=== PATIENT | female | born 1985 | race Caucasian/White ===

== ENCOUNTER → 2016-07-03 | Outpatient (CLI) | payer BC ==
[~2016-07-03] MED LIST: ALBUTEROL0.09 MG/A2 IH; ANAPROX DS550 MG PO; ATIVAN1 MG PO; BANOPHEN50 MG PO; BENADRYL ALLERG25 M5 PO; BENADRYL25 M2 PO; BIAXIN500 MG PO; CATAFLAM50 MG PO; CEFTIN500 MG PO; CLARITIN10 MG PO; CLEOCIN HCL150 MG PO; CLINDAMYCIN150 MG PO; EFFEXOR XR150 M1 PO; FAMOTIDINE20 M1 PO; FIORICET 325 MG1 TAB PO; HYDROCODONE BIT1 T11 PO; KEFLEX250 MG PO; MEDROL DOSEPAK4 MG PO; METFORMIN500 MG PO; MOTRIN600 MG PO; MOTRIN800 MG PO; Motrin,Rufen800 MG PO; PAXIL10 MG PO; PREDNISONE10 M1 PO; PREDNISONE10 MG PO; PREDNISONE20 M1 PO; ROXICET ORAL SOL5 ML PO; SMZ-TMP 800 MG-1 TA1 PO; TRAMADOL HCL50 MG PO; ULTRAM50 MG PO; VICODIN 5/500 505 MG PO; VICODIN 500 MG-1 TAB PO; VICODIN ES 7501 TAB PO; VOLTAREN50 M1 PO; ZANTAC 150150 MG PO; ZOFRAN ODT4 MG SL; ZOFRAN ODT8 MG PO; ZYRTEC10 M3 PO; Zofran4 MG PO
== END | disposition home or self-care (01) ==
LOC: RAD 18:06
DX: S93.402A Sprain of unspecified ligament of left ankle, initial encounter (principal); M25.572 Pain in left ankle and joints of left foot; X58.XXXA Exposure to other specified factors, initial encounter; Y93.89 Activity, other specified; Y92.89 Other specified places as the place of occurrence of the external cause; Y99.8 Other external cause status

== ENCOUNTER → 2017-02-04 | Outpatient (CLI) | payer OTHER, BC | END | disposition home or self-care (01) | LOC: RAD 15:05 | DX: M79.671 Pain in right foot (principal); M79.672 Pain in left foot ==

== ENCOUNTER 2017-04-17 19:54 | Inpatient (IN) | payer OTHER, BC ==
[~2017-04-17] VITALS: Ht 162.6 cm; Wt 98.7 kg
[2017-04-17 20:01] VITALS: BP 153/97
[2017-04-17 20:39] LABS: BASO % 0.4 % (0.0-1.0); EOS # 0.1 10*3/uL (0.0-0.4); EOS % 0.8 % (1.0-4.0); HEMATOCRIT 39.8 % (37.0-47.0); HEMOGLOBIN 13.2 g/dl (12.0-16.0); LYMPH # 3.1 10*3/uL (1.3-4.4); LYMPH % 32.9 % (27.0-41.0); MEAN CELL VOLUME 85.6 fl (81.0-99.0); MEAN CORPUSCULAR HGB 28.4 pg (27.0-31.0); MEAN CORPUSCULAR HGB CONC 33.2 g/dl (33.0-37.0); MONO # 0.6 10*3/uL (0.1-1.0); MONO % 6.6 % (3.0-9.0); NEUT # 5.5 10*3/uL (2.3-7.9); NEUT % 59.1 % (47.0-73.0); PLATELET COUNT AUTOMATED 252 10*3/uL (130-400); RED BLOOD COUNT 4.65 10*6/uL (4.10-5.10); RED CELL DISTRI WIDTH 13.8 % (0-14.5); WHITE BLOOD COUNT 9.3 10*3/uL (4.8-10.8)
[2017-04-17 20:55] LABS: ALBUMIN 3.9 gm/dl (3.1-4.5); ALKALINE PHOSPHATASE 53 U/L (45-117); BUN 10 mg/dl (7-24); CHLORIDE 108 mmol/L (98-107); CREATININE 0.81 mg/dL (0.55-1.02); POTASSIUM 3.8 mmol/L (3.5-5.1); SGOT/AST 43 IU/L (3-35); SGPT/ALT 102 U/L (12-78); SODIUM 139 mmol/L (136-145); TOTAL PROTEIN 7.6 gm/dL (6.4-8.2)
[2017-04-17 20:56] LABS: BETA-HCG, QUANT < 1.0 mIU/mL (1-3); TROPONIN I < 0.015 ng/ml (<0.045)
[2017-04-17 21:17] LABS: BILIRUBIN NEGATIVE (NEGATIVE); BLOOD 3+ (NEGATIVE); CLARITY CLEAR (CLEAR); COLOR YELLOW (YELLOW); GLUCOSE NEGATIVE (NEGATIVE); KETONE NEGATIVE (NEGATIVE); LEUKO ESTERASE NEGATIVE (NEGATIVE); NITRITE NEGATIVE (NEGATIVE); SPECIFIC GRAVITY 1.015 (1.005-1.030); UROBILINOGEN 0.2 E.U./dl (0.2-1.0)
[2017-04-17 21:24] LABS: BACTERIA TRACE
[2017-04-17 21:25] LABS: RBC 21-30 rbc/hpf (0-2); WBC 0-2 wbc/hpf (0-5)
[2017-04-18 00:25] VITALS: BP 128/72
[2017-04-18 06:47] LABS: BASO % 0.5 % (0.0-1.0); EOS # 0.1 10*3/uL (0.0-0.4); EOS % 1.1 % (1.0-4.0); HEMOGLOBIN 11.3 g/dl (12.0-16.0); LYMPH # 4.8 10*3/uL (1.3-4.4); LYMPH % 54.3 % (27.0-41.0); MEAN CELL VOLUME 88.2 fl (81.0-99.0); MEAN CORPUSCULAR HGB 27.7 pg (27.0-31.0); MEAN CORPUSCULAR HGB CONC 31.4 g/dl (33.0-37.0); MEAN PLATELET VOLUME 12.1 fl (9.6-12.3); MONO # 0.4 10*3/uL (0.1-1.0); NEUT # 3.4 10*3/uL (2.3-7.9); NEUT % 38.9 % (47.0-73.0); PLATELET COUNT AUTOMATED 213 10*3/uL (130-400); RED BLOOD COUNT 4.08 10*6/uL (4.10-5.10); RED CELL DISTRI WIDTH 13.9 % (0-14.5); WHITE BLOOD COUNT 8.8 10*3/uL (4.8-10.8)
[2017-04-18 07:18] LABS: ALBUMIN 3.2 gm/dl (3.1-4.5); BUN 9 mg/dl (7-24); CHLORIDE 112 mmol/L (98-107); CHOLESTEROL 120 mg/dL (<200); PHOSPHOROUS 4.3 mg/dL (2.5-4.9); SGOT/AST 32 IU/L (3-35); SGPT/ALT 81 U/L (12-78); SODIUM 142 mmol/L (136-145); TOTAL PROTEIN 6.2 gm/dL (6.4-8.2); TRIGLYCERIDES 71 mg/dl (<150); VLDL CHOLESTEROL 14 mg/dL (6-40)
[2017-04-18 07:24] LABS: ALKALINE PHOSPHATASE 40 U/L (45-117); HDL CHOLESTEROL 35 mg/dl (40-60); LDL CHOLESTEROL 71 mg/dL (9-159)
[2017-04-18 07:54] LABS: VITAMIN D, 25-HYDROXY 9.3 ng/mL (30-100)
[2017-04-18 09:00] VITALS: BP 102/82
[2017-04-18 12:00] VITALS: BP 110/66
[2017-04-18 16:00] VITALS: BP 97/57
[2017-04-18 20:00] VITALS: BP 133/74
[2017-04-19] VITALS (8 sets, daily range): BP systolic 103–125; BP diastolic 52–78
[2017-04-19 07:22] LABS: BASO % 0.3 % (0.0-1.0); EOS # 0.1 10*3/uL (0.0-0.4); EOS % 1.4 % (1.0-4.0); HEMATOCRIT 35.7 % (37.0-47.0); HEMOGLOBIN 11.7 g/dl (12.0-16.0); LYMPH # 3.9 10*3/uL (1.3-4.4); LYMPH % 53.1 % (27.0-41.0); MEAN CELL VOLUME 88.1 fl (81.0-99.0); MEAN CORPUSCULAR HGB 28.9 pg (27.0-31.0); MEAN CORPUSCULAR HGB CONC 32.8 g/dl (33.0-37.0); MONO # 0.5 10*3/uL (0.1-1.0); MONO % 6.6 % (3.0-9.0); NEUT # 2.8 10*3/uL (2.3-7.9); NEUT % 38.5 % (47.0-73.0); PLATELET COUNT AUTOMATED 203 10*3/uL (130-400); RED BLOOD COUNT 4.05 10*6/uL (4.10-5.10); RED CELL DISTRI WIDTH 13.8 % (0-14.5); WHITE BLOOD COUNT 7.3 10*3/uL (4.8-10.8)
[2017-04-19 07:46] LABS: BUN 6 mg/dl (7-24); CHLORIDE 111 mmol/L (98-107); CREATININE 0.74 mg/dL (0.55-1.02); POTASSIUM 3.6 mmol/L (3.5-5.1); SODIUM 142 mmol/L (136-145)
[2017-04-20] VITALS: BP 121/81
[2017-04-20 07:45] LABS: BASO % 0.4 % (0.0-1.0); EOS # 0.1 10*3/uL (0.0-0.4); EOS % 1.5 % (1.0-4.0); HEMATOCRIT 36.5 % (37.0-47.0); HEMOGLOBIN 12.3 g/dl (12.0-16.0); LYMPH % 44.3 % (27.0-41.0); MEAN CELL VOLUME 86.5 fl (81.0-99.0); MEAN CORPUSCULAR HGB 29.1 pg (27.0-31.0); MEAN CORPUSCULAR HGB CONC 33.7 g/dl (33.0-37.0); MEAN PLATELET VOLUME 11.4 fl (9.6-12.3); MONO # 0.5 10*3/uL (0.1-1.0); MONO % 7.6 % (3.0-9.0); NEUT # 3.1 10*3/uL (2.3-7.9); NEUT % 46.1 % (47.0-73.0); PLATELET COUNT AUTOMATED 206 10*3/uL (130-400); RED BLOOD COUNT 4.22 10*6/uL (4.10-5.10); RED CELL DISTRI WIDTH 13.4 % (0-14.5); WHITE BLOOD COUNT 6.7 10*3/uL (4.8-10.8)
[2017-04-20 08:00] VITALS: BP 131/80
[2017-04-20 08:10] LABS: ALBUMIN 3.2 gm/dl (3.1-4.5); ALKALINE PHOSPHATASE 38 U/L (45-117); BUN 5 mg/dl (7-24); CHLORIDE 109 mmol/L (98-107); LIPASE 161 U/L (73-393); POTASSIUM 3.5 mmol/L (3.5-5.1); SGOT/AST 22 IU/L (3-35); SGPT/ALT 71 U/L (12-78); SODIUM 142 mmol/L (136-145); TOTAL PROTEIN 6.5 gm/dL (6.4-8.2)
[2017-04-20 12:00] VITALS: BP 144/75
[2017-04-20 16:00] VITALS: BP 127/71
[2017-04-20] MEDS ORDERED: PROTONIX40 MG PO (17:24)
[2017-04-20] MEDS ORDERED: VITAMIN D-32000 UNI1 PO (17:24)
[2017-04-20] MEDS ORDERED: NATURE'S BLEND F1 MG PO (17:24)
== END 2017-04-20 17:38 | disposition home or self-care (01) | DRG 392 ==
LOC: ED 19:54 → EDHOLD 22:57 → 4E 22:57
PROVIDERS: Emergency Medicine; Hospitalist; Internal Medicine Hospice and Palliative Medicine; Student in an Organized Health Care Education/Training Program
PROC: 0DJ08ZZ Inspection of Upper Intestinal Tract, Via Natural or Artificial Opening Endoscopic (ICD-10-PCS; principal; 2017-04-19)
DX: R11.2 Nausea with vomiting, unspecified (principal); E44.0 Moderate protein-calorie malnutrition; E87.8 Other disorders of electrolyte and fluid balance, not elsewhere classified; Z68.41 Body mass index [BMI] 40.0-44.9, adult; E66.01 Morbid (severe) obesity due to excess calories; F41.9 Anxiety disorder, unspecified; G43.909 Migraine, unspecified, not intractable, without status migrainosus; K21.9 Gastro-esophageal reflux disease without esophagitis; R73.9 Hyperglycemia, unspecified; R74.0 Nonspecific elevation of levels of transaminase and lactic acid dehydrogenase [LDH]; F32.9 Major depressive disorder, single episode, unspecified; E78.5 Hyperlipidemia, unspecified; D64.9 Anemia, unspecified; E55.9 Vitamin D deficiency, unspecified; E53.8 Deficiency of other specified B group vitamins; K44.9 Diaphragmatic hernia without obstruction or gangrene; R10.9 Unspecified abdominal pain; Z90.49 Acquired absence of other specified parts of digestive tract; Z90.89 Acquired absence of other organs; Z88.1 Allergy status to other antibiotic agents; Z88.0 Allergy status to penicillin; Z82.49 Family history of ischemic heart disease and other diseases of the circulatory system; Z83.3 Family history of diabetes mellitus; Z72.0 Tobacco use; Z87.19 Personal history of other diseases of the digestive system

== ENCOUNTER → 2017-05-08 | Outpatient (CLI) | payer OTHER, BC ==
[~2017-05-08] MED LIST changes: +NATURE'S BLEND F1 MG PO; +PROTONIX40 MG PO; +VITAMIN D-32000 UNI1 PO
== END | disposition home or self-care (01) ==
LOC: RAD 05:39
DX: R11.0 Nausea (principal); R10.9 Unspecified abdominal pain

== ENCOUNTER → 2017-08-20 | Outpatient (CLI) | payer OTHER, BC | END | disposition home or self-care (01) | LOC: RAD 06:39 | DX: R00.2 Palpitations (principal); Z87.891 Personal history of nicotine dependence ==

== ENCOUNTER 2017-08-23 21:39 | Emergency (ER) | payer OTHER, BC ==
[~2017-08-23] VITALS: Ht 160 cm; Wt 95.3 kg
[~2017-08-23 21:39] MED LIST changes: -MACROBID100 M1 PO; -NORCO 5-325 TA1 EACH PO; -Orphenadrine C100 MG PO
[2017-08-23 22:03] LABS: BILIRUBIN NEGATIVE (NEGATIVE); BLOOD NEGATIVE (NEGATIVE); CLARITY SL CLOUDY (CLEAR); COLOR YELLOW (YELLOW); GLUCOSE NEGATIVE (NEGATIVE); KETONE NEGATIVE (NEGATIVE); LEUKO ESTERASE NEGATIVE (NEGATIVE); NITRITE NEGATIVE (NEGATIVE); SPECIFIC GRAVITY 1.025 (1.005-1.030)
[2017-08-23 22:10] LABS: BACTERIA 2+; EPITHELIAL CELLS TNTC; MUCOUS TRACE; RBC 0-2 rbc/hpf (0-2)
[2017-08-23 23:08] VITALS: BP 105/53
[2017-08-23] MEDS ORDERED: ANAPROX DS550 MG PO (23:49)
[2017-08-23] MEDS ORDERED: NORCO 5-325 TA1 EACH PO (23:49)
[2017-08-23] MEDS ORDERED: Orphenadrine C100 MG PO (23:49)
[2017-08-24] MEDS ORDERED: MACROBID100 M1 PO (01:26)
== END 2017-08-23 23:58 | disposition home or self-care (01) ==
LOC: ED 21:39
PROVIDERS: Emergency Medicine Emergency Medical Services
DX: S76.012A Strain of muscle, fascia and tendon of left hip, initial encounter (principal); M08.90 Juvenile arthritis, unspecified, unspecified site; F17.200 Nicotine dependence, unspecified, uncomplicated; G89.29 Other chronic pain; R10.2 Pelvic and perineal pain; E78.00 Pure hypercholesterolemia, unspecified; G43.909 Migraine, unspecified, not intractable, without status migrainosus; E66.01 Morbid (severe) obesity due to excess calories; Z68.41 Body mass index [BMI] 40.0-44.9, adult; Z90.49 Acquired absence of other specified parts of digestive tract; Z98.890 Other specified postprocedural states; Z88.0 Allergy status to penicillin; Z88.1 Allergy status to other antibiotic agents; Z79.899 Other long term (current) drug therapy; X50.1XXA Overexertion from prolonged static or awkward postures, initial encounter; Y93.89 Activity, other specified; Y92.89 Other specified places as the place of occurrence of the external cause; Y99.9 Unspecified external cause status

== ENCOUNTER → 2017-08-23 | Outpatient (CLI) | payer OTHER, BC ==
[~2017-08-23] MED LIST changes: +MACROBID100 M1 PO; +NORCO 5-325 TA1 EACH PO; +Orphenadrine C100 MG PO
--- NOTE | ~2017-08-23 | HM ---
[place], [place] HOLTER MONITOR REPORT NAME: [id number] UNIT #: [id number] ROOM: DOCTOR: VIRGEN AUSTIN MD BIRTHDATE: [birth year] DOS: 08/27/2017 REFERRING PHYSICIAN: Keke Alcala. INDICATION: Palpitations. FINDINGS: 1. The patient underwent standard 48-hour Holter. The patient's baseline rhythm was normal sinus with average heart rate of 70 beats per minute with a minimum heart rate of 43 beats per minute, with maximum heart rate of 143 beats per minute. 2. Supraventricular activity: The patient had a total of 39 isolated PACs. 3. Ventricular activity, none. 4. No significant blocks, pauses, or bradycardia. 5. No diary was returned. SUMMARY OF FINDINGS: Benign 48-hour Holter monitor. VIRGEN AUSTIN MD CM:HOLTER:HOLTER MONITOR REPORT [id number] VIRGEN AUSTIN MD
== END | disposition home or self-care (01) ==
LOC: CARD 06:24
DX: R00.2 Palpitations (principal)

== ENCOUNTER 2017-12-06 18:36 | Emergency (ER) | payer OTHER, BC ==
[~2017-12-06 18:36] MED LIST changes: +ASPIRIN ADULT L81 M1 PO; +Flonase 0.05% 120 Me NAS; +GOOD NEIGHBOR L10 MG PO; +MACROBID100 M1 PO; +NORCO 5-325 TA1 EACH PO; +Orphenadrine C100 MG PO; +VIBRAMYCIN100 MG PO; +VITAMIN D22000 UNIT PO
[2017-12-06 18:40] VITALS: BP 120/78
[2017-12-06] MEDS ORDERED: CHLORZOXAZONE500 M2 PO (19:39)
[2017-12-06] MEDS ORDERED: NAPROSYN500 MG PO (19:39)
== END 2017-12-06 21:35 | disposition home or self-care (01) ==
LOC: ED 18:36
DX: S13.9XXA Sprain of joints and ligaments of unspecified parts of neck, initial encounter (principal); S20.212A Contusion of left front wall of thorax, initial encounter; S20.211A Contusion of right front wall of thorax, initial encounter; G43.909 Migraine, unspecified, not intractable, without status migrainosus; E66.9 Obesity, unspecified; F17.200 Nicotine dependence, unspecified, uncomplicated; Z88.0 Allergy status to penicillin; Z68.35 Body mass index [BMI] 35.0-35.9, adult; Z90.49 Acquired absence of other specified parts of digestive tract; Z88.1 Allergy status to other antibiotic agents; Z79.899 Other long term (current) drug therapy; Z79.82 Long term (current) use of aspirin; V43.52XA Car driver injured in collision with other type car in traffic accident, initial encounter; Y93.89 Activity, other specified; Y92.488 Other paved roadways as the place of occurrence of the external cause; Y99.8 Other external cause status

== ENCOUNTER 2018-02-23 20:04 | Emergency (ER) | payer OTHER, BC ==
[~2018-02-23] VITALS: Ht 160 cm; Wt 95.3 kg
[~2018-02-23 20:04] MED LIST changes: +CHLORZOXAZONE500 M2 PO; +NAPROSYN500 MG PO
[2018-02-23 22:52] VITALS: BP 115/66
[2018-02-23] MEDS ORDERED: CYCLOBENZAPRINE10 MG PO (23:10)
[2018-02-23] MEDS ORDERED: Motrin,Rufen800 MG PO (23:10)
== END 2018-02-23 23:28 | disposition home or self-care (01) ==
LOC: ED 20:04
DX: R51 Headache (principal); F17.200 Nicotine dependence, unspecified, uncomplicated; Z88.0 Allergy status to penicillin; Z88.1 Allergy status to other antibiotic agents; Z79.1 Long term (current) use of non-steroidal anti-inflammatories (NSAID); Z79.82 Long term (current) use of aspirin; Z79.899 Other long term (current) drug therapy; Z90.49 Acquired absence of other specified parts of digestive tract; Z93.4 Other artificial openings of gastrointestinal tract status

== ENCOUNTER 2018-04-13 15:22 | Emergency (ER) | payer OTHER, BC ==
[~2018-04-13] VITALS: Wt 68.0 kg
[2018-04-13 15:22] VITALS: BP 100/70
[~2018-04-13 15:22] MED LIST changes: +CYCLOBENZAPRINE10 MG PO
[2018-06-17] MEDS ORDERED: NORCO 5-325 TA1 EACH PO (01:58)
[2018-06-17] MEDS ORDERED: Motrin,Rufen800 MG PO (01:59)
== END 2018-04-13 15:58 | disposition home or self-care (01) ==
LOC: ED 15:22
DX: H10.9 Unspecified conjunctivitis (principal); F17.200 Nicotine dependence, unspecified, uncomplicated; Z88.0 Allergy status to penicillin; Z88.1 Allergy status to other antibiotic agents; Z79.82 Long term (current) use of aspirin; Z90.49 Acquired absence of other specified parts of digestive tract

== ENCOUNTER → 2018-06-09 | Outpatient (CLI) | payer OTHER, BC ==
[~2018-06-09] MED LIST changes: +ATARAX,VISTARIL10 MG PO; +DOXYCYCLINE100 MG PO; +HYDROCODONE-AC1 EAC1 PO; +Nystatin 100,000 UNI PO; +OMEPRAZOLE MAGN20 MG PO; +REGLAN5 MG PO; +SEPTDS PO; +VISTARIL PO; +WELLBUTRIN SR150 MG PO; +ZOFRAN 4 MG ED2 TAB SL
== END | disposition home or self-care (01) ==
LOC: US 05-21 10:30
DX: R94.5 Abnormal results of liver function studies (principal); Z90.49 Acquired absence of other specified parts of digestive tract

== ENCOUNTER → 2018-07-16 | Day surgery (SDC) | payer OTHER, BC ==
[~2018-07-16] VITALS: Ht 160 cm; Wt 95.3 kg
--- NOTE | ~2018-07-16 | O ---
[place], [place] OPERATIVE NOTE NAME: [facility]CADO [facility] [id number] UNIT #: [id number] ROOM: [facility] [birth year] DOS: GASTROENDOSCOPIC REPORT: INDICATIONS: This is a 32-year-old patient, who was presented with chief complaint of epigastric distress. The patient known with a fatty liver and dyspepsia. ALLERGIES: PENICILLIN AND ERYTHROMYCIN. FAMILY HISTORY: Noncontributory. PAST SURGICAL HISTORY: Previous bile duct leak, status post previous cholecystectomy at age 17. PAST MEDICAL HISTORY: Obesity, anxiety. SOCIAL HISTORY: Vaping and nonalcohol consumer. PROCEDURE: Today's procedure part of investigation is panendoscopy plus biopsy. PREMEDICATION: Propofol. SCOPE: Olympus forward-viewing gastroscope Q10 video. REPORT: After putting the patient in left lateral position and application of lubricant to the scope, the scope was introduced; thereafter, under direct visualization, advanced through the length of esophagus without difficulty. I did not see any specific evidence of portal hypertension, i.e., reflux leading into the esophagus with IE esophageal varicosity. There was esophagus versus free of esophageal varicosity, hiatal hernia of 2 cm, which is photographed and as I entered the gastric pouch along the greater curvature large volume of food retention was noticed this signifies gastric stasis. The appropriate maneuver of the bolus of the food and retention of the ____ was bypassed along the lesser curvature into the pyloric ring into duodenal bulb, second and third part and photographic biopsy of the antrum was obtained. Air was suctioned out as much as possible the food liquid component of the retention was suctioned out. The patient was extubated along the lesser curvature, some evidence of reflux and possible minimal aspiration also noticed. I have questioned the patient as far as her last solid meal has been about 18 hours ago and therefore this signifies that she has gastroparesis. IMPRESSION: Gastroparesis retained food residue in large volume, gastritis, hiatal hernia. No esophageal varicosity, history of severe fatty metamorphosis of liver, work in progress. PLAN AND DISCUSSION: 1. We are going to consider omeprazole 20 mg 1 every day for dyspepsia and gastritis. 2. We are going to use metoclopramide 5 mg 1 hour a.c. ____ and antireflux with [place], [place] OPERATIVE NOTE NAME: JENNIFER MERCADO UNIT #: [id number] ROOM: DOCTOR: JESSICA MORA,MAURY BIRTHDATE: [birth year] elevation of the head of the bed 10 inches all time. Abstinence from solid food ingestion 5 hours before retiring and avoiding fatty food. Avoiding large volume food and follow up routinely with you in office and with me in GI clinic. Thank you very much indeed for your kind referral. MAURY LOPEZ MD CM:OPRECORD:OPERATIVE NOTE [id number] MAURY LOPEZ MD 07/16/18 1020 interface
[2018-07-16 08:12] VITALS: BP 132/94
[2018-07-16 09:33] VITALS: BP 104/68
[2018-07-16 09:45] VITALS: BP 106/73
[2018-07-16 10:00] VITALS: BP 114/83
== END | disposition home or self-care (01) ==
LOC: SDC 07-11 11:00
DX: K29.50 Unspecified chronic gastritis without bleeding (principal); K31.84 Gastroparesis; E66.9 Obesity, unspecified; F41.9 Anxiety disorder, unspecified; K44.9 Diaphragmatic hernia without obstruction or gangrene; Z88.0 Allergy status to penicillin; Z88.1 Allergy status to other antibiotic agents; Z87.891 Personal history of nicotine dependence; Z98.890 Other specified postprocedural states; Z79.899 Other long term (current) drug therapy; Z90.49 Acquired absence of other specified parts of digestive tract; Z68.37 Body mass index [BMI] 37.0-37.9, adult; Z82.49 Family history of ischemic heart disease and other diseases of the circulatory system; Z83.3 Family history of diabetes mellitus

== ENCOUNTER 2018-07-21 18:31 | Inpatient (IN) | payer OTHER ==
[~2018-07-21] VITALS: Ht 160 cm; Wt 108.0 kg
--- NOTE | ~2018-07-21 | PR ---
[place], [place] PROGRESS NOTE NAME: JENNIFER MERCADO [facility] #: [id number] UNIT #: [id number] ROOM: 428 DOCTOR: JESSICA MORAMAURY BIRTHDATE: [birth year] DOS: 07/23/2018 HISTORY: The patient is a 32-year-old patient who has presented with a chief complaint of nonspecific abdominal pain. CT scan has not been conclusive. Suspected mesenteric inflammation has been reported, panniculitis, nonspecific data. The patient is known to have biliary duct perforation at age 17 and borderline GOT/GPT, transaminemia. The patient has had cholecystectomy as I mentioned above, history of gastritis endoscopically not associated with the complaint. PAST SURGICAL HISTORY: Tonsillectomy, cholecystectomy, appendectomy, as well as cholecystojejunostomy possibility, detail is not in my hand or hepatojejunostomy. REVIEW OF SYSTEMS: CARDIORESPIRATORY: No shortness of breath, no chest pain. DIGESTIVE SYSTEM: No hematemesis, no hematochezia. No nausea or vomiting. PHYSICAL EXAMINATION: GENERAL: Healthy, borderline obese. HEENT: Head is normocephalic, nontraumatic. Mouth and buccal mucosa are benign. NECK: Supple. No thyromegaly. No cervical lymphadenopathy. CHEST: Symmetric anatomy, equal expansion. HEART: Normal sinus rhythm. No gallop. No murmur. ABDOMEN: Soft. No hepato-organomegaly. Bowel sounds present. No rebound tenderness. Slightly guarding on the right side, right upper quadrant, uncomfortable. EXTREMITIES: No cyanosis. No pedal edema. NEUROLOGIC: Alert, oriented x 3. IMPRESSION: Mesenteric nonspecific reported inflammation. PLAN AND DISCUSSION: We have kept the patient on ciprofloxacin and metronidazole IV. This can be further assessed with a CT scan of the abdomen and pelvis with IV contrast tomorrow morning, and if no acute concerning pathology found, then the patient can perhaps be discharged with Bactrim-DS and doxycycline or Bactrim-DS and metronidazole; doxycycline 100 mg b.i.d. for 10 days as well as metronidazole 500 mg t.i.d. for 10 days from discharge time. Otherwise, other adjunctive diagnoses as reported in past medical and surgical history. Awaiting CT scan of the abdomen with contrast results tomorrow. Report to be called to Dr. Nails in the morning as soon as available. [place], [place] PROGRESS NOTE NAME: JENNIFER MERCADO UNIT #: [id number] ROOM: [facility] DOCTOR: MAURY NAILS MD BIRTHDATE: [birth year] MAURY NAILS MD CM:PNMADHAVI [id number] MAURY NAILS MD 08/18/18 0956 interface
--- NOTE | ~2018-07-21 | CON ---
[place], [place] REPORT OF CONSULTATION NAME[facility]CAD[id number] UNIT #: [id number] ROOM: 428 DOCTOR: MAURY LPOEZ MD BIRTHDATE: [birth year] DOS: 07/21/2018 HISTORY OF PRESENT ILLNESS: This is a 32-year-old patient who presented with chief complaint of abdominal pain. She correlates it to the timing after she has had endoscopy. Thereafter, abdominal pain started, which is unusual. She has not had evidence of perforation. This issue has happened several days ago. The patient had multiple emesis. The patient has history of cholecystectomy and biliary perforation at age 17, accidental, and she has a surgical repair, possibly choledochojejunostomy repair. PAST MEDICAL HISTORY: Associated with gastroparesis, gastritis. PAST SURGICAL HISTORY: Cholecystectomy, appendectomy, tonsillectomy, adenoidectomy, cholecystic repair. Detail is not known, but perhaps cholecystic jejunostomy versus hepatojejunostomy. Tubal ligation fallopian also has been done. Appendectomy has been done. SOCIAL HISTORY: Nonsmoker of nicotine, but vaping. FAMILY HISTORY: Noncontributory except myocardial infarction, hypertension, and diabetes. REVIEW OF SYSTEMS: HEENT: Denies double vision, blurred vision. RESPIRATORY: Denies shortness of breath. CARDIOVASCULAR: No chest pain. DIGESTIVE SYSTEM: Cross abdominal pain, epigastric pain. PHYSICAL EXAMINATION: GENERAL: Obese patient. HEENT: Head normocephalic, nontraumatic. Eyes: Pupils round and reactive. Mouth and buccal mucosa benign. NECK: Supple, no thyromegaly, no cervical lymphadenopathy. CHEST: Symmetric anatomy, equal expansion. No wheeze, no rhonchi. HEART: Normal sinus rhythm, no gallop, no murmur. ABDOMEN: Obese, soft. No hepato-organomegaly, nonspecific tenderness across abdomen. EXTREMITIES: No cyanosis, no pedal edema. NEUROLOGIC: Alert and oriented to time, place, person. IMPRESSION AND PLAN: Gross abdominal pain, possible panniculitis. However, gastric stasis, hiatal hernia, gastritis, according to the recent endoscopy performed on 07/16/2018. Antral biopsy has been negative for H. pylori or unwanted tissue. Lactic acid has been negative. Comprehensive metabolic panel, GFR normal. Liver function test, SGOT, GPT of 51 and 98. Apparently chronic elevation of the SGOT and GPT. Her C-reactive protein today has been 0.95 was slightly elevated. Lipase within normal limits. CBC differential, white blood cell 9, H and H of 12 and 38, differential within normal limit. CT scan of the abdomen and pelvis, lung bases are clear, fatty liver noticed mild pneumobilia, status post cholecystectomy is known with previous biliary surgery. No ureteral [place], [place] REPORT OF CONSULTATION NAME: JENNIFER MERCADO UNIT #: [id number] ROOM: 428 DOCTOR: JESSICA MORA,MAURY BIRTHDATE: [birth year] calculi. Main organs including pancreas, adrenal glands, liver and kidneys are suboptimally visualized; however, noticed. No acute process either otherwise identified. Labs reviewed, records reviewed. IMPRESSION: Ambiguous abdominal pain, status post previous hepatobiliary repair 15 years ago, history of obesity, hepatic steatosis with chronic abnormal transaminemia without elevation of the lipase, alkaline phosphatase or bilirubin. Suspected panniculitis, the study has been noncontrast due to the ambiguity of symptomatology of this patient, especially being young, the CT scan of the abdomen and pelvis with oral and IV contrast is going to be organized tomorrow and another CBC repeat. On the other hand, we are going to proceed with antibiotic therapy of Flagyl and ciprofloxacin just in case to see in 48 hours if she is going to have some relief of her inflammatory process in the abdomen as has been reported. Other adjunctive diagnoses that has been recently endoscopically evaluated was hiatal hernia, gastroparesis. She has been taking Reglan and she is on proton pump inhibitors. MAURY LOPEZ MD CM:CONSTR:REPORT OF CONSULTATION 2312 08/13/18 0731 interface
[2018-07-21 18:31] VITALS: BP 119/75
[~2018-07-21 18:31] MED LIST changes: -ATARAX,VISTARIL10 MG PO; -DOXYCYCLINE100 MG PO; -HYDROCODONE-AC1 EAC1 PO; -Nystatin 100,000 UNI PO; -SEPTDS PO; -ZOFRAN 4 MG ED2 TAB SL
[2018-07-21 19:03] LABS: HEMATOCRIT 38.6 % (37.0-47.0); HEMOGLOBIN 12.5 g/dl (12.0-16.0); MEAN CELL VOLUME 86.9 fl (81.0-99.0); MEAN CORPUSCULAR HGB 28.2 pg (27.0-31.0); MEAN CORPUSCULAR HGB CONC 32.4 g/dl (33.0-37.0); MEAN PLATELET VOLUME 10.9 fl (9.6-12.3); PLATELET COUNT AUTOMATED 263 10*3/uL (130-400); RED BLOOD COUNT 4.44 10*6/uL (4.10-5.10); RED CELL DISTRI WIDTH 13.5 % (0-14.5); WHITE BLOOD COUNT 9.7 10*3/uL (4.8-10.8)
[2018-07-21 19:22] LABS: ALBUMIN 3.7 gm/dl (3.1-4.5); ALKALINE PHOSPHATASE 60 U/L (45-117); BUN 11 mg/dl (7-24); CHLORIDE 106 mmol/L (98-107); CREATININE 0.77 mg/dL (0.55-1.02); LIPASE 244 U/L (73-393); POTASSIUM 3.6 mmol/L (3.5-5.1); SGOT/AST 51 IU/L (3-35); SGPT/ALT 98 U/L (12-78); SODIUM 136 mmol/L (136-145); TOTAL PROTEIN 7.4 gm/dL (6.4-8.2)
[2018-07-21 19:24] LABS: BILIRUBIN NEGATIVE (NEGATIVE); BLOOD NEGATIVE (NEGATIVE); CLARITY CLEAR (CLEAR); COLOR YELLOW (YELLOW); GLUCOSE NEGATIVE (NEGATIVE); KETONE NEGATIVE (NEGATIVE); LEUKO ESTERASE NEGATIVE (NEGATIVE); NITRITE NEGATIVE (NEGATIVE); PH 5.5 (5.0-9.0); UROBILINOGEN 0.2 E.U./dl (0.2-1.0)
[2018-07-21 19:25] LABS: TOTAL CELLS COUNTED 100 #CELLS
[2018-07-21 19:26] LABS: BURR CELLS FEW; PLATELET SUFFICIENCY NORMAL (NORMAL)
[2018-07-21 19:30] LABS: BACTERIA 1+
--- NOTE | 2018-07-21 20:22 | NUR ---
PT REPORTS CONTINUING ABD PAIN AND NAUSEA AFTER MEDICATION OF ZOFRAN AND TORADOL.DEPUTY REGISTER OF DEEDS STELLA WAS NOTIFIED AND PT MEDICATED PER EMAR.FAMILY AT BEDSIDE.
[2018-07-21 22:33] VITALS: BP 118/63
--- NOTE | 2018-07-21 23:08 | NUR ---
A 32, admitted to , under the services of JAMAL Cortez DO with a diagnosis of ABDOMINAL PAIN, INTRACTABLE NASUEA. Chief complaint is ADBOMINAL PAIN. Patient arrived via ambulatory from ER. Monitor applied. Initial assessment completed. Vital signs taken and recorded. JAMAL CORTEZ DO notified of admission to the unit. Orders received. See assessment for past medical history, medications and allergies. Patient and/or family oriented to unit. [facility] visitation policy reviewed. Clothing/patient valuable form completed. PAMELA AUSTIN
[2018-07-22] VITALS: BP 121/84
--- NOTE | 2018-07-22 00:15 | NUR ---
CALLED DR. ANTHONY ABOUT PATIENT BEING LEERY ABOUT TAKING NORCO ON AND EMPTY STOMACH. NO OTHER MEDS ORDERED. ALSO ASKED IF IT WERE OK TO ORDER KVO FLUIDS TO POSSIBLY HELP KEEP THE PATIENTS IV SINCE SHE HAS BEEN POKED MULTIPLE TIMES. HE STATED HE WOULD ORDER DILAUDID BUT TO WARN THE PATIENT ABOUT NARCOTICS AND HER BOWELS AND THAT HE WOULD ORDER THE KVO FLUIDS
--- NOTE | 2018-07-22 00:40 | NUR ---
PRN MORPHINE GIVEN FOR PT COMPLAINTS OF RUE ABDOMINAL PAIN RATING IT 8/10. CALL LIGHT JOVANA KEARNS, WILL MONITOR
--- NOTE | 2018-07-22 01:30 | NUR ---
PRN MEDICATION APPEARS EFFECTIVE, PT SLEEPING
--- NOTE | 2018-07-22 03:00 | NUR ---
PATIENT REMAINS ASLEEP AT THIS TIME. BREATHING IS EASY AND REGULAR ON ROOM AIR
--- NOTE | 2018-07-22 04:09 | NUR ---
PRN ZOFRAN AND MORPHINE GIVEN FOR PT COMPLAINTS OF NAUSEA AND RUQ ABDOMINAL PAIN 8/10 ON PAIN SCALE. CALL LIGHT WITHIN REACH, WILL MONITOR
[2018-07-22 06:29] LABS: BUN 11 mg/dl (7-24); CHLORIDE 107 mmol/L (98-107); CREATININE 0.66 mg/dL (0.55-1.02); POTASSIUM 3.8 mmol/L (3.5-5.1); SODIUM 138 mmol/L (136-145)
[2018-07-22] MEDS ORDERED: ATARAX,VISTARIL10 MG PO ×2 (07:05)
[2018-07-22 07:06] LABS: HEMATOCRIT 36.6 % (37.0-47.0); HEMOGLOBIN 11.6 g/dl (12.0-16.0); MEAN CELL VOLUME 87.8 fl (81.0-99.0); MEAN CORPUSCULAR HGB 27.8 pg (27.0-31.0); MEAN CORPUSCULAR HGB CONC 31.7 g/dl (33.0-37.0); MEAN PLATELET VOLUME 11.4 fl (9.6-12.3); PLATELET COUNT AUTOMATED 233 10*3/uL (130-400); RED BLOOD COUNT 4.17 10*6/uL (4.10-5.10); RED CELL DISTRI WIDTH 13.8 % (0-14.5); WHITE BLOOD COUNT 8.4 10*3/uL (4.8-10.8)
[2018-07-22 07:32] LABS: ATYPICAL LYMPHS 2 % (0-0); PLATELET SUFFICIENCY NORMAL (NORMAL); TOTAL CELLS COUNTED 100 #CELLS
[2018-07-22 08:00] VITALS: BP 120/73
--- NOTE | 2018-07-22 09:00 | NUR ---
Plastic Molding Operator in to talk to patient. Patient states lives at home with family. There are few steps in the home. Physician: ariadne de oliveira [facility]acy: [facility] Home health services: none Patient's level of ADLs: INDEPENDENT Patient has working utilities: all working DME: none Follow-up physician's appointment after d/c: will be made by hospitalist nurse director upon discharge Does patient want to access PORTAL?: no Discharge plan discussed with patient, patient lives at home with family, she is independent in adls and ambulation, patient will return home when able and denies any home needs. GREGOR DOBBINS
--- NOTE | 2018-07-22 10:05 | NUR ---
MEDICATED WITH 2MG IV MORPHINE AND ZOFRAN PER ORDERS AND REQUEST FOR RUQ ABDOMINAL PAIN RATED AT A 8 OUT OF 10.
--- NOTE | 2018-07-22 10:55 | NUR ---
ZOFRAN AND MORPHINE HELP.
--- NOTE | 2018-07-22 11:32 | NUR ---
CALLED AND SPOKE WITH DR OROSCO FOR ALTERNATIVE PAIN MEDICATION.
[2018-07-22 12:00] VITALS: BP 133/83
--- NOTE | 2018-07-22 12:28 | NUR ---
MEDICATED WITH PRN DILAUDID.
--- NOTE | 2018-07-22 13:03 | NUR ---
SPOKE TO DR OROSCO REGARDING WELLBUTRIN.
--- NOTE | 2018-07-22 15:53 | NUR ---
MEDICATED WITH PRN MORPHINE PER ORDER AND REQUEST FOR RUQ ABDOMINAL PAIN RATED AT A 8 OUT OF 10.
[2018-07-22 16:00] VITALS: BP 101/66
--- NOTE | 2018-07-22 18:20 | NUR ---
MEDICATED WITH DILAUDID PER ORDER AND REQUEST.
[2018-07-22 20:00] VITALS: BP 138/86
--- NOTE | 2018-07-22 20:34 | NUR ---
PATIENT MEDICATED WITH PRN MORPHINE FOR C/O ABDOMINAL PAIN. RATES 10/08. WILL CHECK EFFECTIVENESS.
[2018-07-23] VITALS: BP 121/67
[2018-07-23 06:56] LABS: CHLORIDE 108 mmol/L (98-107); POTASSIUM 3.6 mmol/L (3.5-5.1); SGOT/AST 39 IU/L (3-35); SODIUM 140 mmol/L (136-145)
[2018-07-23 07:00] LABS: ALKALINE PHOSPHATASE 45 U/L (45-117); BUN 9 mg/dl (7-24); CREATININE 0.79 mg/dL (0.55-1.02); SGPT/ALT 84 U/L (12-78); TOTAL PROTEIN 6.1 gm/dL (6.4-8.2)
[2018-07-23 08:00] VITALS: BP 129/84
--- NOTE | 2018-07-23 09:00 | NUR ---
case management visits with patient, patient states she will be going home when able and denies any home needs
--- NOTE | 2018-07-23 09:18 | NUR ---
MEDICATED WITH DILAUDID PER ORDER AND REQUEST.
--- NOTE | 2018-07-23 11:29 | NUR ---
MEDICATED WITH PRN MORPHINE PER ORDER AND REQUEST.
[2018-07-23 12:00] VITALS: BP 110/67
--- NOTE | 2018-07-23 12:00 | NUR ---
MORPHINE HELPS A LITTLE.
--- NOTE | 2018-07-23 15:23 | NUR ---
MEDICATED WITH PRN DILAUDID PER ORDER AND REQUEST.
[2018-07-23 16:00] VITALS: BP 116/69
--- NOTE | 2018-07-23 17:24 | NUR ---
MEDICATED WITH MORPHINE PER ORDER AND REQUEST.
[2018-07-23 20:00] VITALS: BP 124/68
[2018-07-24] VITALS: BP 123/68
[2018-07-24 06:41] LABS: ALBUMIN 3.1 gm/dl (3.1-4.5); ALKALINE PHOSPHATASE 42 U/L (45-117); BASO % 0.4 % (0.0-1.0); BUN 8 mg/dl (7-24); CHLORIDE 106 mmol/L (98-107); CREATININE 0.67 mg/dL (0.55-1.02); EOS # 0.1 10*3/uL (0.0-0.4); EOS % 1.9 % (1.0-4.0); HEMATOCRIT 36.3 % (37.0-47.0); MEAN CELL VOLUME 87.1 fl (81.0-99.0); MEAN CORPUSCULAR HGB 28.8 pg (27.0-31.0); MEAN CORPUSCULAR HGB CONC 33.1 g/dl (33.0-37.0); MEAN PLATELET VOLUME 11.2 fl (9.6-12.3); MONO # 0.5 10*3/uL (0.1-1.0); MONO % 6.8 % (3.0-9.0); NEUT # 3.8 10*3/uL (2.3-7.9); NEUT % 50.6 % (47.0-73.0); PLATELET COUNT AUTOMATED 249 10*3/uL (130-400); POTASSIUM 3.8 mmol/L (3.5-5.1); RED BLOOD COUNT 4.17 10*6/uL (4.10-5.10); RED CELL DISTRI WIDTH 13.9 % (0-14.5); SGOT/AST 45 IU/L (3-35); SGPT/ALT 85 U/L (12-78); SODIUM 138 mmol/L (136-145); TOTAL PROTEIN 6.2 gm/dL (6.4-8.2); WHITE BLOOD COUNT 7.4 10*3/uL (4.8-10.8)
[2018-07-24 08:00] VITALS: BP 109/57
--- NOTE | 2018-07-24 08:54 | NUR ---
PATIENT REQUESTING PAIN MEDICATION FOR ABDOMINAL PAIN AND NAUSEA MEDICATION FOR NAUSEA. MORPHINE AND ZOFRAN ADMINISTERED PRESCRIBED. WILL MONITOR FOR EFFECTIVENESS.
--- NOTE | 2018-07-24 09:00 | NUR ---
case management visits with patient, patient denies any home needs
--- NOTE | 2018-07-24 09:54 | NUR ---
PATIENT STATES THAT ZOFRAN AND MORPHINE INITIALLY HELPED WITH NAUSEA AND PAIN, BUT AFTER SHE ATE BREAKFAST SHE IS MORE NAUSEATED AND HAS ABDOMINAL PAIN. WILL FOLLOW UP WITH PHYSICIAN.
--- NOTE | 2018-07-24 10:20 | NUR ---
AM MEDICATION HELD AT THIS TIME DUE TO NAUSEA.
--- NOTE | 2018-07-24 10:49 | NUR ---
DR GROVER CALLED DUE TO PATIENTS CONTINUED NAUSEA. WANTS ME TO CALL JESSICA AND FOLLOW UP WITH HIM. AWAITING NEW ORDERS.
--- NOTE | 2018-07-24 10:53 | NUR ---
DR LOPEZ CALLED, HE WILL RETURN CALL SHORTLY.
--- NOTE | 2018-07-24 11:45 | NUR ---
PATIENT C/O ABDOMINAL PAIN RATED 8/10 AT THIS TIME. MORPHINE ADMINISTERED PRESCRIBED. WILL MONITOR FOR EFFECTIVENESS.
[2018-07-24 12:00] VITALS: BP 119/78
--- NOTE | 2018-07-24 12:24 | NUR ---
SPOKE WITH DR LOPEZ. WANTS PATIENT TO HAVE MRCP.
--- NOTE | 2018-07-24 12:45 | NUR ---
PATIENT STATES THAT DILAUDID HELPED HER ABDOMINAL PAIN RATED 5/10 AT THIS TIME. WILL CONTINUE TO MONITOR,
--- NOTE | 2018-07-24 14:37 | NUR ---
MRI CALLED ABOUT PATIENT POSSIBLY HAVING CLIP ON LIVER DUCT. RICARDO FROM MRI STATED THAT IT SHOULD BE OK TO SCAN. MRI FORM SENT.
[2018-07-24 16:00] VITALS: BP 108/54
--- NOTE | 2018-07-24 16:23 | NUR ---
PATIENT REQUESTING PAIN MEDICATION FOR ABDOMINAL PAIN RATED 8/10 AT THIS TIME. MORPHINE ADMINISTERED PRESCRIBED. WILL MONITOR FOR EFFECTIVENESS.
--- NOTE | 2018-07-24 16:30 | NUR ---
PATIENT IV INFILTRATED. DR GROVER CALLED- GOING TO SEE PATIENT TO PLACE NEW IV.
--- NOTE | 2018-07-24 17:23 | NUR ---
PATIENT STATES THAT PAIN IS A LITTLE BETTER AFTER ADMINISTRATION OF MORPHINE. WILL CONTINUE TO MONITOR.
--- NOTE | 2018-07-24 18:40 | NUR ---
IV started left hand with #24 protective cath after 1 attempts. Site prepped with Chloroprep. Sterile dressing applied. Patient tolerated procedure well. ALMA DELIA BUENO
[2018-07-24 20:00] VITALS: BP 113/67
--- NOTE | 2018-07-24 20:18 | NUR ---
PATIENT INQUIRING ABOUT HAVING LINE PLACED FOR PROCEDURE TOMORROW. DR. TAYLOR STATED THAT SHE DOES NOT NEED THE LINE TONIGHT, THEY WILL MORE THAN LIKELY DO IT IN THE MORNING. NOTIFIED HIM THAT WE ONLY HAVE A VERY SMALL IV N THE LEFT HAND AND MULTIPLE OF HER IV'S HAVE GONE BAD. HE STATED THAT IF THIS ONE GOES BAD TO LET THEM KNOW
--- NOTE | 2018-07-24 20:41 | NUR ---
DR TAYLOR CALLED TO MAKE PHERGAN PO IF PATIENT'S IV IS NOT WORKING. OK TO ENTER NEW ORDER.
[2018-07-25] VITALS: BP 115/65
--- NOTE | 2018-07-25 03:37 | NUR ---
MORPHINE GIVEN AT THIS TIME PER ORDERS FOR C/O RUQ ABDOMINAL PAIN. PHENERGAN GIVEN PER PT REQUEST FOR NAUSEA. WILL MONITOR EFFECTIVENESS.
--- NOTE | 2018-07-25 05:45 | NUR ---
PRN IV DILAUDID GIVEN PER ORDERS FOR ABDOMINAL PAIN PER PT REQUEST
[2018-07-25 08:00] VITALS: BP 112/71
--- NOTE | 2018-07-25 08:13 | NUR ---
DR GROVER NOTIFIED PATIENT UNABLE TO TOLERATE MRI PROCEDURE DUE TO ANXIETY.
--- NOTE | 2018-07-25 09:00 | NUR ---
case management visits with patient, patient states she will be going home when able and denies any home needs
--- NOTE | 2018-07-25 11:47 | NUR ---
PATIENT C/O RUQ PAIN. RATE 7/10 ON PAIN SCALE. MEDICATED WITH DILAUDID PER PRN ORDER. WILL CONTINUE TO MONITOR.
[2018-07-25 12:00] VITALS: BP 102/50
--- NOTE | 2018-07-25 15:55 | NUR ---
MEDICATED WITH NORCO PER PRN ORDER FOR C/O RUQ PAIN. RATE 8/10 ON PAIN SCALE. WILL CONTINUE TO MONITOR.
[2018-07-25 16:00] VITALS: BP 126/60
--- NOTE | 2018-07-25 17:18 | NUR ---
NORCO INEFFECTIVE. CONTINUES TO C/O RUQ PAIN. RATE 10/10 ON PAIN SCALE. MEDICATED WITH DILAUDID PER PRN ORDER. WILL CONTINUE TO MONITOR.
[2018-07-25 20:00] VITALS: BP 126/71
--- NOTE | 2018-07-25 21:32 | NUR ---
MORPHINE EFFECTIVE FOR ABDOMINAL PAIN
--- NOTE | 2018-07-25 21:43 | NUR ---
PATIENT MEDICATED WITH ZOFRAN FOR C/O NAUSEA. WILL MONITOR
--- NOTE | 2018-07-25 22:38 | NUR ---
ZOFRAN INEFFECTIVE. PHENERGAN GIVE IV, PUSHED SLOWLY. WILL MONITOR
--- NOTE | 2018-07-25 23:38 | NUR ---
IV PHENERGAN EFFECTIVE FOR NAUSEA
--- NOTE | 2018-07-25 23:53 | NUR ---
PATIENT MEDICATED WITH IV DILAUDID FOR C/O 8 ABDOMINAL PAIN. WILL MONITOR
[2018-07-26] VITALS: BP 149/94
--- NOTE | 2018-07-26 00:53 | NUR ---
IV DILAUDID EFFECTIVE FOR ABDOMINAL PAIN.
--- NOTE | 2018-07-26 02:53 | NUR ---
24 HR chart check completed.
--- NOTE | 2018-07-26 04:30 | NUR ---
PATIENT MEDICATED WITH MORPHINE FOR C/O 8/10 ABDOMINAL PAIN. WILL MONITOR
--- NOTE | 2018-07-26 05:30 | NUR ---
MORPHINE EFFECTIVE FOR ABDOMINAL PAIN.
--- NOTE | 2018-07-26 07:30 | NUR ---
Patient resting quietly with no c/o discomfort. Respirations easy and regular. Vital signs stable. No overt distress. AMBER DELEON
[2018-07-26 08:00] VITALS: BP 111/78
--- NOTE | 2018-07-26 08:53 | NUR ---
MEDICATED WITH IV PHENERGAN ORDERED PER PT REQUEST FOR C/O NAUSEA.
--- NOTE | 2018-07-26 09:11 | NUR ---
MEDICATED WITH IV DILAUDID ORDERED PER PT REQUEST FOR C/O PAIN TO RUQ RATED 8/10.
--- NOTE | 2018-07-26 11:55 | NUR ---
MEDICATIONS SOMEWHAT EFFECTIVE. MEDICATED WITH PO NORCO ORDERED PER PT REQUEST FOR C/O PAIN RATED 4/10.
[2018-07-26 12:00] VITALS: BP 121/65
[2018-07-26] MEDS ORDERED: HYDROCODONE-AC1 EAC1 PO (13:13)
[2018-07-26] MEDS ORDERED: ZOFRAN 4 MG ED2 TAB SL (13:13)
[2018-07-26] MEDS ORDERED: SEPTDS PO (13:13)
[2018-07-26] MEDS ORDERED: DOXYCYCLINE100 MG PO (13:13)
--- NOTE | 2018-07-26 13:43 | NUR ---
PHENERGRYN 25 MG GIVEN PER PT REQUEST FOR NAUSEA.
--- NOTE | 2018-07-26 14:15 | NUR ---
MEDICATION EFFECTIVE FOR NAUSEA.
[2018-07-26] MEDS ORDERED: Nystatin 100,000 UNI PO (14:25)
--- NOTE | 2018-07-26 14:26 | NUR ---
PT LEAVING IN CARE OF SISTER, AMBULATORY.
== END 2018-07-26 14:36 | disposition home or self-care (01) | DRG 394 ==
LOC: ED 18:31 → EDHOLD 20:43 → 4E 20:43
PROVIDERS: Family Medicine; Nurse Practitioner Family; Student in an Organized Health Care Education/Training Program; ADMIT Internal Medicine
DX: K65.4 Sclerosing mesenteritis (principal); K31.84 Gastroparesis; F17.210 Nicotine dependence, cigarettes, uncomplicated; K76.0 Fatty (change of) liver, not elsewhere classified; K29.70 Gastritis, unspecified, without bleeding; K44.9 Diaphragmatic hernia without obstruction or gangrene; Z88.0 Allergy status to penicillin; Z88.1 Allergy status to other antibiotic agents; Z90.49 Acquired absence of other specified parts of digestive tract; Z71.6 Tobacco abuse counseling; Z68.41 Body mass index [BMI] 40.0-44.9, adult; Z83.3 Family history of diabetes mellitus; Z82.49 Family history of ischemic heart disease and other diseases of the circulatory system; Z79.899 Other long term (current) drug therapy

== ENCOUNTER 2018-11-05 19:43 | Emergency (ER) | payer OTHER ==
[~2018-11-05] VITALS: Wt 95.3 kg
[~2018-11-05 19:43] MED LIST changes: +ATARAX,VISTARIL10 MG PO; +DOXYCYCLINE100 MG PO; +HYDROCODONE-AC1 EAC1 PO; +Nystatin 100,000 UNI PO; +SEPTDS PO; +ZOFRAN 4 MG ED2 TAB SL
[2018-11-05 19:50] VITALS: BP 141/71
[2018-11-05] MEDS ORDERED: ANAPROX DS550 MG PO (20:32)
== END 2018-11-05 20:59 | disposition home or self-care (01) ==
LOC: ED 19:43
DX: M26.602 Left temporomandibular joint disorder, unspecified (principal); F17.200 Nicotine dependence, unspecified, uncomplicated; Z90.49 Acquired absence of other specified parts of digestive tract; Z79.899 Other long term (current) drug therapy; Z88.0 Allergy status to penicillin; Z88.1 Allergy status to other antibiotic agents; Z79.2 Long term (current) use of antibiotics

== ENCOUNTER 2019-01-25 23:19 | Inpatient (IN) | payer OTHER ==
[~2019-01-25] VITALS: Ht 165.1 cm; Wt 112.2 kg
--- NOTE | ~2019-01-25 | EKG ---
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
--- NOTE | ~2019-01-25 | EKG ---
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
--- NOTE | ~2019-01-25 | ST ---
[place], [place] EXERCISE STRESS TEST REPORT [id number] #: [id number] ROOM: [facility] DOCTOR: SKYLA SEO MD BIRTHDATE: [birth year] DOS: The patient walked for 2 minutes and 49 seconds on a full Codey protocol stress test and stopped for chest pain. She achieved a maximum heart rate of 153 beats per minute, which represented 80% of the maximum predicted heart rate at a workload of 4.3 METs. There were no EKG changes on the exercise EKG. The patient experienced limiting angina. Hill treadmill score was -5 consistent with an intermediate risk of cardiovascular events. There was an appropriate blood pressure and heart rate response to exercise. Please see the separate imaging report for further details of the stress test results. Skyla Seo MD CM:STRESS:EXERCISE STRESS TEST REPORT [id number] 1246 SKYLA SEO MD
--- NOTE | ~2019-01-25 | EKG ---
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
[2019-01-25 23:41] VITALS: BP 133/74
[2019-01-25 23:49] LABS: BASO % 0.4 % (0.0-1.0); EOS # 0.2 10*3/uL (0.0-0.4); EOS % 1.6 % (1.0-4.0); HEMATOCRIT 41.5 % (37.0-47.0); HEMOGLOBIN 13.3 g/dl (12.0-16.0); LYMPH # 4.2 10*3/uL (1.3-4.4); LYMPH % 41.3 % (27.0-41.0); MEAN CELL VOLUME 88.5 fl (81.0-99.0); MEAN CORPUSCULAR HGB 28.4 pg (27.0-31.0); MEAN PLATELET VOLUME 12.1 fl (9.6-12.3); MONO # 0.7 10*3/uL (0.1-1.0); MONO % 7.1 % (3.0-9.0); NEUT # 5.1 10*3/uL (2.3-7.9); NEUT % 49.4 % (47.0-73.0); PLATELET COUNT AUTOMATED 188 10*3/uL (130-400); RED BLOOD COUNT 4.69 10*6/uL (4.10-5.10); RED CELL DISTRI WIDTH 14.3 % (0-14.5); WHITE BLOOD COUNT 10.3 10*3/uL (4.8-10.8)
[2019-01-26 00:39] LABS: BILIRUBIN NEGATIVE (NEGATIVE); BLOOD NEGATIVE (NEGATIVE); CLARITY CLEAR (CLEAR); COLOR YELLOW (YELLOW); GLUCOSE NEGATIVE (NEGATIVE); KETONE NEGATIVE (NEGATIVE); LEUKO ESTERASE NEGATIVE (NEGATIVE); NITRITE NEGATIVE (NEGATIVE); PH 7.5 (5.0-9.0); UROBILINOGEN 0.2 E.U./dl (0.2-1.0)
[2019-01-26 00:42] LABS: ACT PARTIAL THROMBO TIME 25.8 SECONDS (20.0-32.1); INTERNATIONAL NORM RATIO 0.9 (2.0-3.5)
[2019-01-26 00:46] LABS: ALBUMIN 3.6 gm/dl (3.1-4.5); ALKALINE PHOSPHATASE 51 U/L (45-117); BUN 8 mg/dl (7-24); CHLORIDE 107 mmol/L (98-107); CREATININE 0.75 mg/dL (0.55-1.02); POTASSIUM 3.5 mmol/L (3.5-5.1); SGOT/AST 29 IU/L (3-35); SGPT/ALT 62 U/L (12-78); SODIUM 137 mmol/L (136-145); TOTAL PROTEIN 7.4 gm/dL (6.4-8.2)
[2019-01-26 00:46] LABS: RBC 0-2 rbc/hpf (0-2)
[2019-01-26 00:47] LABS: BACTERIA TRACE
[2019-01-26 00:48] LABS: TROPONIN I < 0.015 ng/ml (<0.045)
[2019-01-26 01:39] VITALS: BP 122/54
[2019-01-26 03:30] VITALS: BP 125/58
[2019-01-26 07:58] VITALS: BP 132/66
[2019-01-26 12:00] VITALS: BP 109/44
[2019-01-26 16:00] VITALS: BP 97/54
[2019-01-26 20:00] VITALS: BP 118/57
[2019-01-27] VITALS: BP 112/62
[2019-01-27 04:00] VITALS: BP 118/70
[2019-01-27 06:40] LABS: BASO % 0.3 % (0.0-1.0); EOS # 0.1 10*3/uL (0.0-0.4); EOS % 1.3 % (1.0-4.0); HEMATOCRIT 36.9 % (37.0-47.0); HEMOGLOBIN 11.9 g/dl (12.0-16.0); LYMPH # 1.9 10*3/uL (1.3-4.4); LYMPH % 28.6 % (27.0-41.0); MEAN CELL VOLUME 89.3 fl (81.0-99.0); MEAN CORPUSCULAR HGB 28.8 pg (27.0-31.0); MEAN CORPUSCULAR HGB CONC 32.2 g/dl (33.0-37.0); MEAN PLATELET VOLUME 11.1 fl (9.6-12.3); MONO # 0.4 10*3/uL (0.1-1.0); MONO % 6.4 % (3.0-9.0); NEUT # 4.2 10*3/uL (2.3-7.9); NEUT % 63.3 % (47.0-73.0); PLATELET COUNT AUTOMATED 210 10*3/uL (130-400); RED BLOOD COUNT 4.13 10*6/uL (4.10-5.10); RED CELL DISTRI WIDTH 13.7 % (0-14.5); WHITE BLOOD COUNT 6.7 10*3/uL (4.8-10.8)
[2019-01-27 07:08] LABS: ALBUMIN 3.3 gm/dl (3.1-4.5); ALKALINE PHOSPHATASE 36 U/L (45-117); BUN 10 mg/dl (7-24); CHLORIDE 108 mmol/L (98-107); CHOLESTEROL 134 mg/dL (<200); CREATININE 0.74 mg/dL (0.55-1.02); FREE T4 1.08 ng/dl (0.76-1.46); HDL CHOLESTEROL 37 mg/dl (40-60); LDL CHOLESTEROL 78 mg/dL (9-159); PHOSPHOROUS 3.7 mg/dL (2.5-4.9); POTASSIUM 3.8 mmol/L (3.5-5.1); SGOT/AST 29 IU/L (3-35); SGPT/ALT 60 U/L (12-78); SODIUM 138 mmol/L (136-145); TOTAL PROTEIN 6.7 gm/dL (6.4-8.2); TRIGLYCERIDES 94 mg/dl (<150); VLDL CHOLESTEROL 19 mg/dL (6-40)
[2019-01-27 07:10] LABS: ACT PARTIAL THROMBO TIME 25.1 SECONDS (20.0-32.1); INTERNATIONAL NORM RATIO 0.9 (2.0-3.5)
[2019-01-27 09:09] LABS: VITAMIN D, 25-HYDROXY 15.8 ng/mL (30-100)
== END 2019-01-27 08:31 | disposition other institution (70) | DRG 303 ==
LOC: ED 23:19 → 5E 01-26 02:59 → EDHOLD 01-26 02:59 → 5E 01-26 03:16
PROVIDERS: Emergency Medicine; Student in an Organized Health Care Education/Training Program; ADMIT Internal Medicine
PROC: 4A02XM4 Measurement of Cardiac Total Activity, External Approach (ICD-10-PCS; principal; 2019-01-26)
DX: I25.118 Atherosclerotic heart disease of native coronary artery with other forms of angina pectoris (principal); E44.0 Moderate protein-calorie malnutrition; Z68.41 Body mass index [BMI] 40.0-44.9, adult; K21.9 Gastro-esophageal reflux disease without esophagitis; G43.909 Migraine, unspecified, not intractable, without status migrainosus; F41.9 Anxiety disorder, unspecified; F17.290 Nicotine dependence, other tobacco product, uncomplicated; R00.0 Tachycardia, unspecified; E66.01 Morbid (severe) obesity due to excess calories; Z88.0 Allergy status to penicillin; Z88.1 Allergy status to other antibiotic agents; Z90.49 Acquired absence of other specified parts of digestive tract; Z82.49 Family history of ischemic heart disease and other diseases of the circulatory system; Z83.3 Family history of diabetes mellitus; Z79.899 Other long term (current) drug therapy; Z71.6 Tobacco abuse counseling

== ENCOUNTER → 2019-02-02 | Outpatient (CLI) | payer OTHER | END | disposition home or self-care (01) | LOC: CARD 06:03 | DX: F41.9 Anxiety disorder, unspecified (principal); R53.83 Other fatigue; R40.0 Somnolence; R07.9 Chest pain, unspecified; R00.0 Tachycardia, unspecified; Z78.9 Other specified health status ==

== ENCOUNTER → 2019-02-18 | Outpatient (CLI) | payer OTHER ==
--- NOTE | ~2019-02-18 | PF ---
[place], [place] PULMONARY FUNCTION TEST [facility]CAD[id number] UNIT #: [id number] ROOM: DOCTOR: BABAK WARNER MD,INNA BIRTHDATE: [birth year] DOS: 02/18/2019 ORDERED BY: Keke Alcala NP HISTORY: The recorded as 33-year-old female, height of 69 inches, weight of 230 pounds. BMI 39.5. The testing was done for assessment of chest pain and tachycardia. The patient is noted to have tobacco use, half a pack of cigarettes per day for 8 years. Tobacco cessation reported 2 years ago. SPIROMETRY: FVC was 3.75 liters at 98% predicted value. The FEV1 was 3.35 liters at 104% predicted value. Ratio of FEV1/FVC was 89%. Flow volume loop was normal. Post-bronchodilator, no improvement was noted. LUNG VOLUME: Thoracic gas volume recorded as 53%, residual volume of 82%, total lung capacity 92%. The patient's airway resistance and passive conductance were normal. The patient's lung diffusion was normal. FINAL IMPRESSION: Normal pulmonary function test was noted. INNA HILLIARD MD CM:PFREPORT:PULMONARY FUNCTION TEST 0935 1210 INNA WARNER MD
== END | disposition home or self-care (01) ==
LOC: CP 07:27
DX: R00.0 Tachycardia, unspecified (principal); R07.9 Chest pain, unspecified; R53.83 Other fatigue; R40.0 Somnolence; F41.9 Anxiety disorder, unspecified; Z78.9 Other specified health status

== ENCOUNTER 2019-10-01 21:59 | Emergency (ER) | payer SELFPAY ==
[~2019-10-01] VITALS: Ht 162.5 cm; Wt 103.4 kg
[2019-10-01 22:13] VITALS: BP 115/52
== END 2019-10-01 23:52 | disposition home or self-care (01) ==
LOC: ED 21:59
DX: S93.402A Sprain of unspecified ligament of left ankle, initial encounter (principal); F17.200 Nicotine dependence, unspecified, uncomplicated; Z88.0 Allergy status to penicillin; Z88.1 Allergy status to other antibiotic agents; Z79.899 Other long term (current) drug therapy; W18.40XA Slipping, tripping and stumbling without falling, unspecified, initial encounter; Y93.01 Activity, walking, marching and hiking; Y92.89 Other specified places as the place of occurrence of the external cause; Y99.8 Other external cause status

== ENCOUNTER 2019-10-05 23:24 | Emergency (ER) | payer SELFPAY ==
[2019-10-06] MEDS ORDERED: CYCLOBENZAPRINE10 MG PO (00:43)
[2019-10-06 00:47] VITALS: BP 101/53
== END 2019-10-06 00:57 | disposition home or self-care (01) ==
LOC: ED 23:24
DX: S39.012A Strain of muscle, fascia and tendon of lower back, initial encounter (principal); G43.909 Migraine, unspecified, not intractable, without status migrainosus; Z88.0 Allergy status to penicillin; Z88.8 Allergy status to other drugs, medicaments and biological substances; Z90.49 Acquired absence of other specified parts of digestive tract; X58.XXXA Exposure to other specified factors, initial encounter; Y93.89 Activity, other specified; Y92.89 Other specified places as the place of occurrence of the external cause; Y99.8 Other external cause status; F41.9 Anxiety disorder, unspecified

== ENCOUNTER 2019-10-20 21:05 | Emergency (ER) | payer SELFPAY ==
[2019-10-20 21:10] VITALS: BP 125/43
[2019-10-20 21:31] LABS: BASO % 0.5 % (0.0-1.0); EOS # 0.2 10*3/uL (0.0-0.4); EOS % 1.8 % (1.0-4.0); HEMATOCRIT 38.8 % (37.0-47.0); LYMPH # 3.2 10*3/uL (1.3-4.4); MEAN CELL VOLUME 84.2 fl (81.0-99.0); MEAN CORPUSCULAR HGB 27.8 pg (27.0-31.0); MEAN PLATELET VOLUME 11.1 fl (9.6-12.3); MONO # 0.5 10*3/uL (0.1-1.0); MONO % 5.6 % (3.0-9.0); NEUT # 4.4 10*3/uL (2.3-7.9); NEUT % 52.9 % (47.0-73.0); PLATELET COUNT AUTOMATED 295 10*3/uL (130-400); RED BLOOD COUNT 4.61 10*6/uL (4.10-5.10); RED CELL DISTRI WIDTH 13.2 % (0-14.5); WHITE BLOOD COUNT 8.3 10*3/uL (4.8-10.8)
[2019-10-20 22:20] LABS: ALBUMIN 3.6 gm/dl (3.1-4.5); ALKALINE PHOSPHATASE 58 U/L (45-117); BUN 10 mg/dl (7-24); CHLORIDE 109 mmol/L (98-107); CREATININE 0.69 mg/dL (0.55-1.02); POTASSIUM 3.5 mmol/L (3.5-5.1); SGOT/AST 28 IU/L (3-35); SGPT/ALT 52 U/L (12-78); SODIUM 139 mmol/L (136-145); TOTAL PROTEIN 7.4 gm/dL (6.4-8.2)
[2019-10-20 22:59] LABS: BILIRUBIN NEGATIVE (NEGATIVE); BLOOD NEGATIVE (NEGATIVE); CLARITY CLEAR (CLEAR); COLOR YELLOW (YELLOW); GLUCOSE NEGATIVE (NEGATIVE); KETONE NEGATIVE (NEGATIVE); LEUKO ESTERASE NEGATIVE (NEGATIVE); NITRITE NEGATIVE (NEGATIVE); SPECIFIC GRAVITY 1.015 (1.005-1.030); UROBILINOGEN 0.2 E.U./dl (0.2-1.0)
[2019-10-20 23:07] LABS: RBC 0-2 rbc/hpf (0-2); WBC 0-2 wbc/hpf (0-5)
[2019-10-21] MEDS ORDERED: PERCOCET 5-3251 EACH PO (00:34)
[2019-10-21] MEDS ORDERED: VIBRAMYCIN100 MG PO (00:34)
== END 2019-10-21 00:40 | disposition home or self-care (01) ==
LOC: ED 21:05
PROVIDERS: Emergency Medicine
DX: S39.012A Strain of muscle, fascia and tendon of lower back, initial encounter (principal); I88.0 Nonspecific mesenteric lymphadenitis; G43.909 Migraine, unspecified, not intractable, without status migrainosus; E66.9 Obesity, unspecified; F17.210 Nicotine dependence, cigarettes, uncomplicated; Z88.0 Allergy status to penicillin; Z88.1 Allergy status to other antibiotic agents; Z79.899 Other long term (current) drug therapy; Z68.39 Body mass index [BMI] 39.0-39.9, adult; X58.XXXA Exposure to other specified factors, initial encounter; Y93.89 Activity, other specified; Y92.89 Other specified places as the place of occurrence of the external cause; Y99.8 Other external cause status

== ENCOUNTER → 2019-10-26 | Outpatient (CLI) | payer SELFPAY ==
[~2019-10-26] MED LIST changes: +PERCOCET 5-3251 EACH PO
== END | disposition home or self-care (01) ==
LOC: RESCLI 14:23
DX: R10.31 Right lower quadrant pain (principal); E11.9 Type 2 diabetes mellitus without complications; Z90.49 Acquired absence of other specified parts of digestive tract

== ENCOUNTER → 2020-02-24 | Outpatient (CLI) | payer OTHER ==
[2020-02-24 18:28] LABS: BASO % 0.4 % (0.0-1.0); EOS # 0.1 10*3/uL (0.0-0.4); EOS % 1.3 % (1.0-4.0); HEMATOCRIT 40.5 % (37.0-47.0); LYMPH # 3.2 10*3/uL (1.3-4.4); LYMPH % 42.4 % (27.0-41.0); MEAN CELL VOLUME 86.2 fl (81.0-99.0); MEAN CORPUSCULAR HGB 27.2 pg (27.0-31.0); MEAN CORPUSCULAR HGB CONC 31.6 g/dl (33.0-37.0); MEAN PLATELET VOLUME 11.1 fl (9.6-12.3); MONO # 0.5 10*3/uL (0.1-1.0); MONO % 6.4 % (3.0-9.0); NEUT # 3.7 10*3/uL (2.3-7.9); NEUT % 49.4 % (47.0-73.0); PLATELET COUNT AUTOMATED 302 10*3/uL (130-400); WHITE BLOOD COUNT 7.5 10*3/uL (4.8-10.8)
== END | disposition home or self-care (01) ==
LOC: LAB 17:21
PROVIDERS: ATTEND Internal Medicine
DX: N92.0 Excessive and frequent menstruation with regular cycle (principal); R53.83 Other fatigue

== ENCOUNTER → 2020-03-15 | Outpatient (CLI) | payer OTHER | END | disposition home or self-care (01) | LOC: RAD 15:36 | PROVIDERS: ATTEND Orthopaedic Surgery | DX: M25.531 Pain in right wrist (principal) ==

== ENCOUNTER → 2020-08-02 | Outpatient (CLI) | payer OTHER | END | disposition home or self-care (01) | LOC: LAB 14:12 | PROVIDERS: ATTEND Internal Medicine | DX: E11.9 Type 2 diabetes mellitus without complications (principal) ==

== ENCOUNTER → 2020-12-09 | Outpatient (CLI) | payer OTHER ==
[2020-12-09 12:30] LABS: URINE AMPHETAMINES > 1000 (1000ng/ml); URINE BARBITURATES < 200 (200ng/ml); URINE BENZODIAZEPINES < 200 (200ng/ml); URINE CANNABINOIDS (THC) < 50 (50ng/ml); URINE COCAINE < 300 (300ng/ml); URINE METHADONE < 300 (300ng/ml); URINE OPIATES < 300 (300ng/ml)
[2020-12-09 12:31] LABS: URINE PHENCYCLIDINE < 25 (25ng/ml)
== END | disposition home or self-care (01) ==
LOC: RESCLI 11:37
PROVIDERS: ATTEND Internal Medicine
DX: Z02.1 Encounter for pre-employment examination (principal); F32.9 Major depressive disorder, single episode, unspecified; F41.9 Anxiety disorder, unspecified; F17.210 Nicotine dependence, cigarettes, uncomplicated; Z88.0 Allergy status to penicillin; Z88.8 Allergy status to other drugs, medicaments and biological substances; Z90.49 Acquired absence of other specified parts of digestive tract

== ENCOUNTER → 2021-02-09 | Outpatient (CLI) | payer OTHER ==
[2021-02-09 10:08] LABS: BASO # 0.1 10*3/uL (0.0-0.1); BASO % 0.5 % (0.0-1.0); EOS # 0.2 10*3/uL (0.0-0.4); EOS % 1.7 % (1.0-4.0); HEMATOCRIT 40.9 % (37.0-47.0); LYMPH # 3.7 10*3/uL (1.3-4.4); MEAN CELL VOLUME 87.2 fl (81.0-99.0); MEAN CORPUSCULAR HGB 28.6 pg (27.0-31.0); MEAN CORPUSCULAR HGB CONC 32.8 g/dl (33.0-37.0); MEAN PLATELET VOLUME 11.1 fl (9.6-12.3); MONO # 0.6 10*3/uL (0.1-1.0); MONO % 5.7 % (3.0-9.0); NEUT # 5.5 10*3/uL (2.3-7.9); NEUT % 54.8 % (47.0-73.0); PLATELET COUNT AUTOMATED 294 10*3/uL (130-400); RED BLOOD COUNT 4.69 10*6/uL (4.10-5.10); RED CELL DISTRI WIDTH 13.4 % (0-14.5)
[2021-02-09 10:30] LABS: ALKALINE PHOSPHATASE 62 U/L (45-117); BUN 11 mg/dl (7-24); CREATININE 0.75 mg/dL (0.55-1.02); LIPASE 187 U/L (73-393); SGOT/AST 26 IU/L (3-35); SGPT/ALT 63 U/L (12-78); TOTAL PROTEIN 8.1 gm/dL (6.4-8.2)
[2021-02-09 11:33] LABS: CHLORIDE 106 mmol/L (98-107); POTASSIUM 4.1 mmol/L (3.5-5.1); SODIUM 137 mmol/L (136-145)
== END | disposition home or self-care (01) ==
LOC: LAB 09:39
PROVIDERS: ATTEND Nurse Practitioner Family
DX: K91.5 Postcholecystectomy syndrome (principal); R11.2 Nausea with vomiting, unspecified; R10.0 Acute abdomen; Z87.19 Personal history of other diseases of the digestive system

== ENCOUNTER → 2021-04-12 | Outpatient (CLI) | payer OTHER | LOC: WOUNDCARE 14:40 | PROVIDERS: ATTEND Nurse Practitioner Family | DX: L98.8 Other specified disorders of the skin and subcutaneous tissue (principal); F17.210 Nicotine dependence, cigarettes, uncomplicated; Z72.89 Other problems related to lifestyle ==

== ENCOUNTER → 2021-04-14 | Outpatient (CLI) | payer OTHER | LOC: WOUNDCARE 14:55 | PROVIDERS: ATTEND Nurse Practitioner Family | DX: L98.8 Other specified disorders of the skin and subcutaneous tissue (principal); F17.210 Nicotine dependence, cigarettes, uncomplicated; Z72.89 Other problems related to lifestyle ==

== ENCOUNTER → 2021-05-15 | Outpatient (CLI) | payer OTHER ==
[2021-05-15 13:06] LABS: BASO # 0.1 10*3/uL (0.0-0.1); BASO % 0.6 % (0.0-1.0); EOS # 0.1 10*3/uL (0.0-0.4); HEMATOCRIT 42.2 % (37.0-47.0); LYMPH # 4.5 10*3/uL (1.3-4.4); LYMPH % 39.8 % (27.0-41.0); MEAN CELL VOLUME 85.3 fl (81.0-99.0); MEAN CORPUSCULAR HGB 28.1 pg (27.0-31.0); MEAN CORPUSCULAR HGB CONC 32.9 g/dl (33.0-37.0); MEAN PLATELET VOLUME 10.5 fl (9.6-12.3); MONO # 0.7 10*3/uL (0.1-1.0); MONO % 6.1 % (3.0-9.0); NEUT % 52.1 % (47.0-73.0); PLATELET COUNT AUTOMATED 368 10*3/uL (130-400); RED BLOOD COUNT 4.95 10*6/uL (4.10-5.10); RED CELL DISTRI WIDTH 13.2 % (0-14.5); WHITE BLOOD COUNT 11.4 10*3/uL (4.8-10.8)
[2021-05-15 13:23] LABS: ALBUMIN 4.1 gm/dl (3.1-4.5); ALKALINE PHOSPHATASE 67 U/L (45-117); BUN 11 mg/dl (7-24); CHLORIDE 106 mmol/L (98-107); CREATININE 0.78 mg/dL (0.55-1.02); LIPASE 184 U/L (73-393); POTASSIUM 4.3 mmol/L (3.5-5.1); SGOT/AST 30 IU/L (3-35); SODIUM 138 mmol/L (136-145); TOTAL PROTEIN 8.2 gm/dL (6.4-8.2)
[2021-05-15 13:36] LABS: SGPT/ALT 58 U/L (12-78)
== END | disposition home or self-care (01) ==
LOC: LAB 12:48
PROVIDERS: ATTEND Nurse Practitioner Family
DX: R11.10 Vomiting, unspecified (principal); R10.10 Upper abdominal pain, unspecified

== ENCOUNTER → 2021-06-13 | Outpatient (CLI) | payer OTHER ==
[2021-06-14 22:05] LABS: TESTOSTERONE FREE, (DIRECT) 3.5 pg/mL (0.0-4.2)
== END | disposition home or self-care (01) ==
LOC: LAB 08:36
PROVIDERS: ATTEND Nurse Practitioner Women's Health
DX: R53.83 Other fatigue (principal); E55.9 Vitamin D deficiency, unspecified; L65.9 Nonscarring hair loss, unspecified

== ENCOUNTER → 2021-06-21 | Outpatient (CLI) | payer OTHER | END | disposition home or self-care (01) | LOC: MAMMO 01:44 | PROVIDERS: ATTEND Nurse Practitioner Women's Health | DX: N63.22 Unspecified lump in the left breast, upper inner quadrant (principal); Z80.3 Family history of malignant neoplasm of breast; R92.2 Inconclusive mammogram ==

== ENCOUNTER → 2021-08-08 | Outpatient (CLI) | payer OTHER | END | disposition home or self-care (01) | LOC: WOUNDCARE 13:04 | PROVIDERS: ATTEND Surgery | DX: N60.01 Solitary cyst of right breast (principal); D48.9 Neoplasm of uncertain behavior, unspecified; F17.200 Nicotine dependence, unspecified, uncomplicated; Z90.49 Acquired absence of other specified parts of digestive tract ==

== ENCOUNTER 2021-10-29 18:38 | Emergency (ER) | payer OTHER ==
[~2021-10-29] VITALS: Ht 162.5 cm; Wt 99.8 kg
[2021-10-29 18:54] VITALS: BP 139/86
== END 2021-10-29 20:47 | disposition home or self-care (01) ==
LOC: ED 18:38
DX: S63.92XA Sprain of unspecified part of left wrist and hand, initial encounter (principal); S80.01XA Contusion of right knee, initial encounter; M79.645 Pain in left finger(s); F17.200 Nicotine dependence, unspecified, uncomplicated; Z88.0 Allergy status to penicillin; Z88.1 Allergy status to other antibiotic agents; Z79.2 Long term (current) use of antibiotics; Z79.899 Other long term (current) drug therapy; Z90.49 Acquired absence of other specified parts of digestive tract; Z90.89 Acquired absence of other organs; V69.69XA Unspecified occupant of heavy transport vehicle injured in collision with other motor vehicles in traffic accident, initial encounter; Y93.89 Activity, other specified; Y92.89 Other specified places as the place of occurrence of the external cause; Y99.8 Other external cause status

== ENCOUNTER → 2021-12-28 | Outpatient (CLI) | payer OTHER ==
[2021-12-28 15:24] LABS: BASO # 0.1 10*3/uL (0.0-0.1); BASO % 0.6 % (0.0-1.0); EOS # 0.1 10*3/uL (0.0-0.4); EOS % 1.2 % (1.0-4.0); HEMATOCRIT 43.4 % (37.0-47.0); LYMPH # 3.2 10*3/uL (1.3-4.4); LYMPH % 35.2 % (27.0-41.0); MEAN CELL VOLUME 87.5 fl (81.0-99.0); MEAN PLATELET VOLUME 10.4 fl (9.6-12.3); MONO # 0.6 10*3/uL (0.1-1.0); MONO % 6.2 % (3.0-9.0); NEUT # 5.1 10*3/uL (2.3-7.9); NEUT % 56.6 % (47.0-73.0); PLATELET COUNT AUTOMATED 311 10*3/uL (130-400); RED BLOOD COUNT 4.96 10*6/uL (4.10-5.10); RED CELL DISTRI WIDTH 13.2 % (0-14.5)
[2021-12-28 15:41] LABS: ALKALINE PHOSPHATASE 54 U/L (45-117); BUN 6 mg/dl (7-24); CHLORIDE 107 mmol/L (98-107); CREATININE 0.76 mg/dL (0.55-1.02); POTASSIUM 4.4 mmol/L (3.5-5.1); SGOT/AST 35 IU/L (3-35); SGPT/ALT 67 U/L (12-78); SODIUM 138 mmol/L (136-145); TOTAL PROTEIN 8.1 gm/dL (6.4-8.2)
[2021-12-29 12:07] LABS: RHEUMATOID FACTOR <10.0 IU/mL (<14.0)
[2021-12-31 04:05] LABS: CCP ANTIBODIES IGG/IGA 4 units (0-19)
== END | disposition home or self-care (01) ==
LOC: RESCLI 14:00
PROVIDERS: Student in an Organized Health Care Education/Training Program; ATTEND Internal Medicine
DX: M08.99 Juvenile arthritis, unspecified, multiple sites (principal); L65.9 Nonscarring hair loss, unspecified; R53.83 Other fatigue; M25.50 Pain in unspecified joint; F41.9 Anxiety disorder, unspecified; Z87.891 Personal history of nicotine dependence; Z88.0 Allergy status to penicillin; Z88.8 Allergy status to other drugs, medicaments and biological substances; Z90.49 Acquired absence of other specified parts of digestive tract; Z98.890 Other specified postprocedural states; Z79.899 Other long term (current) drug therapy

== ENCOUNTER → 2022-03-19 | Outpatient (CLI) | payer OTHER | END | disposition home or self-care (01) | LOC: LAB 03:52 → RESCLI 03:52 | PROVIDERS: Student in an Organized Health Care Education/Training Program; ATTEND Internal Medicine | DX: Z23 Encounter for immunization (principal); F41.9 Anxiety disorder, unspecified; F32.A Depression, unspecified; E55.9 Vitamin D deficiency, unspecified; L65.9 Nonscarring hair loss, unspecified; F90.9 Attention-deficit hyperactivity disorder, unspecified type; M25.50 Pain in unspecified joint; Z79.899 Other long term (current) drug therapy; Z88.0 Allergy status to penicillin; Z88.1 Allergy status to other antibiotic agents ==

== ENCOUNTER 2022-04-17 08:08 | Emergency (ER) | payer OTHER ==
[~2022-04-17] VITALS: Ht 160 cm; Wt 95.3 kg
[2022-04-17 08:25] VITALS: BP 140/69
== END 2022-04-17 09:30 | disposition home or self-care (01) ==
LOC: ED 08:08
DX: H57.12 Ocular pain, left eye (principal); Z88.0 Allergy status to penicillin; Z88.1 Allergy status to other antibiotic agents; Z90.49 Acquired absence of other specified parts of digestive tract; Z90.89 Acquired absence of other organs; Z87.891 Personal history of nicotine dependence

== ENCOUNTER 2023-07-16 22:41 | Emergency (ER) | payer OTHER ==
[~2023-07-16] VITALS: Ht 160 cm; Wt 99.8 kg
[2023-07-16 23:04] VITALS: BP 147/79
[2023-07-16] MEDS ORDERED: methylPREDNISolone sod succ 1,000 MG/16 ML VIAL IM ONE (23:25)
[2023-07-16] MEDS ORDERED: Cyclobenzaprine Hydrochlorid 10 MG TAB PO ONE (23:30)
[2023-07-16] MEDS ORDERED: Acetaminophen/Oxycodone 5 MG/325 MG TABLET PO ONE (23:30)
[2023-07-16] MEDS ORDERED: Ketorolac Tromethamine 60 MG/2 ML VIAL IM ONE (23:30)
[2023-07-16] MEDS ORDERED: MEDROL DOSEPAK4 MG PO (23:32)
[2023-07-16] MEDS ORDERED: methylPREDNISolone sod succ 125 MG VIAL IM ONE (23:40)
[2023-07-17] MEDS ORDERED: TRAZODONE50 MG PO (16:26)
[2023-07-17] MEDS ORDERED: VYVANSE20 MG PO (16:26)
[2023-07-17] MEDS ORDERED: VISTARIL25 M2 PO (16:26)
== END 2023-07-16 23:52 | disposition home or self-care (01) ==
LOC: ED 22:41
DX: M54.41 Lumbago with sciatica, right side (principal); G43.909 Migraine, unspecified, not intractable, without status migrainosus; E66.9 Obesity, unspecified; F17.210 Nicotine dependence, cigarettes, uncomplicated; Z88.0 Allergy status to penicillin; Z88.1 Allergy status to other antibiotic agents; Z79.899 Other long term (current) drug therapy; Z68.41 Body mass index [BMI] 40.0-44.9, adult; Z68.35 Body mass index [BMI] 35.0-35.9, adult; Z90.49 Acquired absence of other specified parts of digestive tract; Z90.89 Acquired absence of other organs

== ENCOUNTER 2023-07-17 16:02 | Inpatient (IN) | payer OTHER ==
[~2023-07-17] VITALS: Ht 157.5 cm; Wt 101.2 kg
[2023-07-17 16:16] VITALS: BP 135/80
[2023-07-17] MEDS ORDERED: TRAZODONE50 MG PO (16:26)
[2023-07-17] MEDS ORDERED: VISTARIL25 M2 PO (16:26)
[2023-07-17] MEDS ORDERED: VYVANSE20 MG PO (16:26)
[2023-07-17] MEDS ORDERED: DIAZEPAM 10 MG/2 ML SYR IV ONE (16:40)
[2023-07-17] MEDS ORDERED: HYDROmorphONE Hydrochloride 1 MG/ML SYR IV ONE (17:45)
[2023-07-17] MEDS ORDERED: Ondansetron Hydrochloride 4 MG/2 ML VIAL IV ONE (17:45)
[2023-07-17 18:05] VITALS: BP 121/68
[2023-07-17 18:15] LABS: BASO % 0.1 % (0.0-1.0); EOS % 0.1 % (1.0-4.0); HEMATOCRIT 40.1 % (37.0-47.0); LYMPH # 1.3 10*3/uL (1.3-4.4); LYMPH % 9.5 % (27.0-41.0); MEAN CORPUSCULAR HGB 28.6 pg (27.0-31.0); MEAN CORPUSCULAR HGB CONC 32.9 g/dl (33.0-37.0); MEAN PLATELET VOLUME 10.5 fl (9.6-12.3); MONO # 0.6 10*3/uL (0.1-1.0); MONO % 4.4 % (3.0-9.0); NEUT % 85.5 % (47.0-73.0); PLATELET COUNT AUTOMATED 322 10*3/uL (130-400); RED BLOOD COUNT 4.61 10*6/uL (4.10-5.10); RED CELL DISTRI WIDTH 13.2 % (0-14.5); WHITE BLOOD COUNT 14.1 10*3/uL (4.8-10.8)
[2023-07-17 18:29] LABS: BUN 8 mg/dl (9-23); CHLORIDE 106 mmol/L (98-107); POTASSIUM 4.1 mmol/L (3.4-5.1)
[2023-07-17 18:44] LABS: BILIRUBIN Negative (Negative); BLOOD Negative (Negative); CLARITY Cloudy (Clear); COLOR Yellow (Yellow); GLUCOSE 3+ (Negative); KETONE Trace (Negative); LEUKO ESTERASE Negative (Negative); NITRITE Negative (Negative); PH 5.5 (4.5-8.0); SPECIFIC GRAVITY >= 1.030 (1.001-1.030); UROBILINOGEN 0.2 E.U./dl (0.0-1.0)
[2023-07-17 19:26] LABS: BACTERIA TRACE; MUCOUS 1+; RBC 0-2 rbc/hpf (0-2)
[2023-07-17 20:03] VITALS: BP 113/63
[2023-07-17] MEDS ORDERED: Ondansetron Hydrochloride 4 MG/2 ML VIAL IV PRN (20:10)
[2023-07-17] MEDS ORDERED: BISACODYL 10 MG SUPP R PRN (20:10)
[2023-07-17] MEDS ORDERED: ACETAMINOPHEN 650 MG SUPP R PRN (20:10)
[2023-07-17] MEDS ORDERED: Acetaminophen/Hydrocodone 5 MG/325 MG TABLET PO PRN (20:10)
[2023-07-17] MEDS ORDERED: ACETAMINOPHEN 325 MG TAB PO PRN (20:10)
[2023-07-17] MEDS ORDERED: Magnesium Hydroxide 30 ML UDC PO PRN (20:10)
[2023-07-17] MEDS ORDERED: BISACODYL 5 MG TAB PO PRN (20:10)
[2023-07-17] MEDS ORDERED: TEMAZEPAM 15 MG CAP PO PRN (20:10)
[2023-07-17] MEDS ORDERED: Ketorolac Tromethamine 30 MG/ML VIAL IV ONE (20:30)
[2023-07-17 21:00] VITALS: BP 138/62
[2023-07-17] MEDS ORDERED: DEXAMETHASONE 4 MG TAB PO SCH (22:00)
[2023-07-18] VITALS: BP 120/59
[2023-07-18] MEDS ORDERED: Ketorolac Tromethamine 15 MG/ML VIAL IV PRN
[2023-07-18] MEDS ORDERED: hydrOXYzine pamoate 25 MG CAP PO PRN (00:05)
[2023-07-18 06:33] LABS: BASO % 0.2 % (0.0-1.0); EOS % 0.2 % (1.0-4.0); HEMATOCRIT 38.3 % (37.0-47.0); LYMPH # 3.4 10*3/uL (1.3-4.4); LYMPH % 25.7 % (27.0-41.0); MEAN CELL VOLUME 86.8 fl (81.0-99.0); MEAN CORPUSCULAR HGB 27.9 pg (27.0-31.0); MEAN CORPUSCULAR HGB CONC 32.1 g/dl (33.0-37.0); MEAN PLATELET VOLUME 10.8 fl (9.6-12.3); MONO # 0.9 10*3/uL (0.1-1.0); MONO % 6.6 % (3.0-9.0); NEUT # 8.8 10*3/uL (2.3-7.9); NEUT % 66.9 % (47.0-73.0); PLATELET COUNT AUTOMATED 304 10*3/uL (130-400); RED BLOOD COUNT 4.41 10*6/uL (4.10-5.10); RED CELL DISTRI WIDTH 13.4 % (0-14.5); WHITE BLOOD COUNT 13.2 10*3/uL (4.8-10.8)
[2023-07-18 06:47] LABS: ALKALINE PHOSPHATASE 43 U/L (46-116); BUN 13 mg/dl (9-23); CHLORIDE 105 mmol/L (98-107); CHOLESTEROL 172 mg/dL (<200); LDL CHOLESTEROL 109 mg/dL (9-159); POTASSIUM 3.7 mmol/L (3.4-5.1); SGPT/ALT 36 U/L (5-49); TOTAL PROTEIN 6.5 gm/dL (6.0-8.0); TRIGLYCERIDES 57 mg/dl (<150)
[2023-07-18 07:45] LABS: VITAMIN D, 25-HYDROXY 38.8 ng/mL (30-100)
[2023-07-18 08:00] VITALS: BP 118/69
[2023-07-18] MEDS ORDERED: LORazepam 1 MG TAB PO ONE (08:15)
[2023-07-18] MEDS ORDERED: DEXAMETHASONE 4 MG TAB PO SCH (10:00)
[2023-07-18] MEDS ORDERED: Enoxaparin Sodium 40 MG/0.4 ML SYR SC SCH (10:00)
[2023-07-18 12:00] VITALS: BP 138/86
[2023-07-18] MEDS ORDERED: HYDROmorphONE Hydrochloride 1 MG/ML SYR IV ONE (15:25)
[2023-07-18 16:00] VITALS: BP 139/76
[2023-07-18 20:00] VITALS: BP 120/74
[2023-07-19] VITALS: BP 128/61
[2023-07-19 06:46] LABS: BASO % 0.2 % (0.0-1.0); EOS % 0.1 % (1.0-4.0); LYMPH # 3.7 10*3/uL (1.3-4.4); LYMPH % 27.4 % (27.0-41.0); MEAN CELL VOLUME 87.3 fl (81.0-99.0); MEAN CORPUSCULAR HGB 28.4 pg (27.0-31.0); MEAN CORPUSCULAR HGB CONC 32.5 g/dl (33.0-37.0); MEAN PLATELET VOLUME 10.4 fl (9.6-12.3); MONO # 0.9 10*3/uL (0.1-1.0); MONO % 6.9 % (3.0-9.0); NEUT # 8.8 10*3/uL (2.3-7.9); NEUT % 64.9 % (47.0-73.0); PLATELET COUNT AUTOMATED 295 10*3/uL (130-400); RED BLOOD COUNT 4.58 10*6/uL (4.10-5.10); RED CELL DISTRI WIDTH 13.4 % (0-14.5); WHITE BLOOD COUNT 13.5 10*3/uL (4.8-10.8)
[2023-07-19 06:57] LABS: BUN 12 mg/dl (9-23); CHLORIDE 105 mmol/L (98-107); POTASSIUM 4.2 mmol/L (3.4-5.1)
[2023-07-19 08:00] VITALS: BP 142/90
[2023-07-19] MEDS ORDERED: HYDROmorphONE Hydrochloride 1 MG/ML SYR IV ONE (11:35)
== END 2023-07-19 12:30 | disposition short-term general hospital (02) | DRG 552 ==
LOC: ED 16:02 → EDHOLD 18:10 → 5E 20:30
PROVIDERS: Nurse Practitioner Family; Student in an Organized Health Care Education/Training Program; ADMIT Student in an Organized Health Care Education/Training Program; ATTEND Student in an Organized Health Care Education/Training Program
DX: M54.59 Other low back pain (principal); R65.10 Systemic inflammatory response syndrome (SIRS) of non-infectious origin without acute organ dysfunction; R20.2 Paresthesia of skin; D72.9 Disorder of white blood cells, unspecified; R73.9 Hyperglycemia, unspecified; G43.909 Migraine, unspecified, not intractable, without status migrainosus; K44.9 Diaphragmatic hernia without obstruction or gangrene; M53.86 Other specified dorsopathies, lumbar region; Z88.0 Allergy status to penicillin; Z88.1 Allergy status to other antibiotic agents; Z90.49 Acquired absence of other specified parts of digestive tract; Z98.51 Tubal ligation status; Z83.3 Family history of diabetes mellitus; Z82.49 Family history of ischemic heart disease and other diseases of the circulatory system

== ENCOUNTER → 2023-10-24 | Outpatient (CLI) | payer OTHER ==
[~2023-10-24] MED LIST changes: +TRAZODONE50 MG PO; +VISTARIL25 M2 PO; +VYVANSE20 MG PO
== END | disposition home or self-care (01) ==
LOC: RAD 09:59
PROVIDERS: ATTEND Internal Medicine
DX: M25.552 Pain in left hip (principal); M25.551 Pain in right hip

== ENCOUNTER → 2023-10-31 | Outpatient (CLI) | payer OTHER | END | disposition home or self-care (01) | LOC: US 01:03 | PROVIDERS: ATTEND Internal Medicine | DX: M79.671 Pain in right foot (principal); M79.672 Pain in left foot ==

== ENCOUNTER → 2023-11-01 | Outpatient (CLI) | payer OTHER | END | disposition home or self-care (01) | LOC: MRI 00:53 | PROVIDERS: ATTEND Internal Medicine | DX: M16.0 Bilateral primary osteoarthritis of hip (principal); M25.552 Pain in left hip; M25.551 Pain in right hip ==

== ENCOUNTER 2023-11-23 11:22 | Emergency (ER) | payer OTHER ==
[~2023-11-23] VITALS: Ht 160 cm; Wt 95.3 kg
[2023-11-23] MEDS ORDERED: IOHEXOL 300 MG/ML 100 ML VIAL IV ONE (11:50)
[2023-11-23 12:04] LABS: BASO % 0.4 % (0.0-1.0); EOS # 0.1 10*3/uL (0.0-0.4); EOS % 1.2 % (1.0-4.0); HEMATOCRIT 41.2 % (37.0-47.0); LYMPH # 2.2 10*3/uL (1.3-4.4); MEAN CELL VOLUME 87.7 fl (81.0-99.0); MEAN CORPUSCULAR HGB 27.7 pg (27.0-31.0); MEAN CORPUSCULAR HGB CONC 31.6 g/dl (33.0-37.0); MEAN PLATELET VOLUME 10.7 fl (9.6-12.3); MONO # 0.5 10*3/uL (0.1-1.0); MONO % 6.1 % (3.0-9.0); NEUT # 4.5 10*3/uL (2.3-7.9); PLATELET COUNT AUTOMATED 279 10*3/uL (130-400); RED CELL DISTRI WIDTH 12.8 % (0-14.5); WHITE BLOOD COUNT 7.3 10*3/uL (4.8-10.8)
[2023-11-23 12:22] LABS: BUN 9 mg/dl (9-23); CHLORIDE 105 mmol/L (98-107); POTASSIUM 3.7 mmol/L (3.4-5.1)
[2023-11-23] MEDS ORDERED: Ceftriaxone Sodium 1 GM/10 ML SYR IV ONE (14:05)
[2023-11-23] MEDS ORDERED: METRONIDAZOLE 100 ML IV ONE (14:05)
[2023-11-23] MEDS ORDERED: Ondansetron Hydrochloride 4 MG/2 ML VIAL IV ONE (14:25)
[2023-11-23] MEDS ORDERED: MORPHINE Sulfate 2 MG/ML SYR IV ONE (14:25)
[2023-11-23 14:45] VITALS: BP 141/81
[2023-11-23] MEDS ORDERED: Ketorolac Tromethamine 15 MG/ML VIAL IV ONE (15:25)
== END 2023-11-23 15:50 | disposition short-term general hospital (02) ==
LOC: ED 11:22
PROVIDERS: Internal Medicine
DX: K12.2 Cellulitis and abscess of mouth (principal); K11.8 Other diseases of salivary glands; F17.290 Nicotine dependence, other tobacco product, uncomplicated; Z88.0 Allergy status to penicillin; Z88.1 Allergy status to other antibiotic agents; Z79.899 Other long term (current) drug therapy; Z90.49 Acquired absence of other specified parts of digestive tract; Z90.89 Acquired absence of other organs

== ENCOUNTER 2024-03-27 03:12 | Emergency (ER) | payer OTHER ==
[2024-03-27 03:20] VITALS: BP 150/92
[2024-03-27] MEDS ORDERED: LAMOTRIGINE100 MG PO (03:20)
[2024-03-27] MEDS ORDERED: Ondansetron Hydrochloride 4 MG TAB SL ONE (03:30)
[2024-03-27 03:41] LABS: BASO % 0.3 % (0.0-1.0); EOS # 0.1 10*3/uL (0.0-0.4); EOS % 0.8 % (1.0-4.0); HEMATOCRIT 41.4 % (37.0-47.0); MEAN CELL VOLUME 86.1 fl (81.0-99.0); MEAN CORPUSCULAR HGB 28.7 pg (27.0-31.0); MEAN CORPUSCULAR HGB CONC 33.3 g/dl (33.0-37.0); MEAN PLATELET VOLUME 10.6 fl (9.6-12.3); MONO # 0.7 10*3/uL (0.1-1.0); MONO % 7.5 % (3.0-9.0); NEUT # 5.5 10*3/uL (2.3-7.9); NEUT % 60.4 % (47.0-73.0); PLATELET COUNT AUTOMATED 268 10*3/uL (130-400); RED BLOOD COUNT 4.81 10*6/uL (4.10-5.10); RED CELL DISTRI WIDTH 13.6 % (0-14.5); WHITE BLOOD COUNT 9.2 10*3/uL (4.8-10.8)
[2024-03-27 04:04] LABS: ALKALINE PHOSPHATASE 40 U/L (46-116); BUN 12 mg/dl (9-23); CHLORIDE 103 mmol/L (98-107); LIPASE 51 U/L (12-53); POTASSIUM 3.7 mmol/L (3.4-5.1); SGPT/ALT 39 U/L (5-49); TOTAL PROTEIN 7.4 gm/dL (6.0-8.0)
[2024-03-27] MEDS ORDERED: Ondansetron Hydrochloride 4 MG/2 ML VIAL IV ONE (05:25)
[2024-03-27] MEDS ORDERED: HYDROmorphONE Hydrochloride 0.5 MG/0.5 ML SYRINGE IV ONE (07:30)
[2024-03-27] MEDS ORDERED: PERCOCET 5-3251 EACH PO (09:34)
== END 2024-03-27 09:52 | disposition home or self-care (01) ==
LOC: ED 03:12
PROVIDERS: Internal Medicine
DX: K52.9 Noninfective gastroenteritis and colitis, unspecified (principal); F41.9 Anxiety disorder, unspecified; F17.290 Nicotine dependence, other tobacco product, uncomplicated; Z88.0 Allergy status to penicillin; Z88.1 Allergy status to other antibiotic agents; Z90.49 Acquired absence of other specified parts of digestive tract; Z90.89 Acquired absence of other organs; Z98.890 Other specified postprocedural states

== ENCOUNTER 2024-05-06 12:08 | Emergency (ER) | payer OTHER ==
[~2024-05-06] VITALS: Wt 93.4 kg
[~2024-05-06 12:08] MED LIST changes: +LAMOTRIGINE100 MG PO
[2024-05-06] MEDS ORDERED: SODIUM CHLORIDE 0.9% 1,000 ML IV ONE (12:35)
[2024-05-06] MEDS ORDERED: LORazepam 1 MG TAB PO ONE (12:40)
[2024-05-06] MEDS ORDERED: Ketorolac Tromethamine 30 MG/ML VIAL IV ONE (12:40)
[2024-05-06 13:09] LABS: BASO % 0.4 % (0.0-1.0); EOS % 0.4 % (1.0-4.0); HEMATOCRIT 43.5 % (37.0-47.0); MEAN CELL VOLUME 86.7 fl (81.0-99.0); MEAN CORPUSCULAR HGB 28.3 pg (27.0-31.0); MEAN CORPUSCULAR HGB CONC 32.6 g/dl (33.0-37.0); MEAN PLATELET VOLUME 10.1 fl (9.6-12.3); MONO # 0.5 10*3/uL (0.1-1.0); MONO % 5.3 % (3.0-9.0); NEUT # 5.8 10*3/uL (2.3-7.9); NEUT % 67.2 % (47.0-73.0); PLATELET COUNT AUTOMATED 339 10*3/uL (130-400); RED BLOOD COUNT 5.02 10*6/uL (4.10-5.10); RED CELL DISTRI WIDTH 12.8 % (0-14.5); WHITE BLOOD COUNT 8.6 10*3/uL (4.8-10.8)
[2024-05-06 13:27] LABS: BUN 7 mg/dl (9-23); CHLORIDE 104 mmol/L (98-107); POTASSIUM 4.2 mmol/L (3.4-5.1)
[2024-05-06] MEDS ORDERED: fentaNYL CITRATE 100 MCG/2 ML VIAL IV ONE (14:45)
[2024-05-06] MEDS ORDERED: Acetaminophen/Hydrocodone 5 MG/325 MG TABLET PO ONE (16:20)
[2024-05-06 17:15] VITALS: BP 110/58
== END 2024-05-06 18:12 | disposition short-term general hospital (02) ==
LOC: ED 12:08
PROVIDERS: Physician Assistant Medical
DX: M54.50 Low back pain, unspecified (principal); R32 Unspecified urinary incontinence; R42 Dizziness and giddiness; R25.1 Tremor, unspecified; Z88.0 Allergy status to penicillin; Z88.1 Allergy status to other antibiotic agents; Z79.899 Other long term (current) drug therapy; Z90.49 Acquired absence of other specified parts of digestive tract; Z90.89 Acquired absence of other organs; Z87.891 Personal history of nicotine dependence

== ENCOUNTER 2024-05-29 09:17 | Emergency (ER) | payer OTHER ==
[~2024-05-29] VITALS: Ht 160 cm; Wt 95.3 kg
[2024-05-29 09:31] VITALS: BP 117/89
[2024-05-29] MEDS ORDERED: Acetaminophen/Oxycodone 5 MG/325 MG TABLET PO ONE (09:45)
[2024-05-29] MEDS ORDERED: CLINDAMYCIN HC300 MG PO (09:49)
[2024-05-29] MEDS ORDERED: MELOXICAM15 MG PO (09:49)
[2024-05-29] MEDS ORDERED: CLINDAMYCIN HCL 300 MG CAPSULE PO ONE (09:50)
== END 2024-05-29 09:56 | disposition home or self-care (01) ==
LOC: ED 09:17
DX: K04.7 Periapical abscess without sinus (principal); Z88.0 Allergy status to penicillin; Z88.1 Allergy status to other antibiotic agents; Z79.899 Other long term (current) drug therapy; Z90.49 Acquired absence of other specified parts of digestive tract; Z90.89 Acquired absence of other organs; Z87.891 Personal history of nicotine dependence

== ENCOUNTER 2024-09-20 14:52 | Emergency (ER) | payer OTHER, BC ==
[~2024-09-20] VITALS: Ht 160 cm; Wt 90.7 kg
[~2024-09-20 14:52] MED LIST changes: +CLINDAMYCIN HC300 MG PO; +MELOXICAM15 MG PO
[2024-09-20 15:01] VITALS: BP 119/76
== END 2024-09-20 15:41 | disposition home or self-care (01) ==
LOC: ED 14:52
DX: Z04.1 Encounter for examination and observation following transport accident (principal); Z88.0 Allergy status to penicillin; Z88.1 Allergy status to other antibiotic agents; Z79.899 Other long term (current) drug therapy; Z90.49 Acquired absence of other specified parts of digestive tract; Z90.89 Acquired absence of other organs; Z87.891 Personal history of nicotine dependence; V69.59XA Passenger in heavy transport vehicle injured in collision with other motor vehicles in traffic accident, initial encounter; Y93.89 Activity, other specified; Y92.488 Other paved roadways as the place of occurrence of the external cause; Y99.8 Other external cause status